=== PATIENT | female | born 1960 | race Caucasian/White ===

== ENCOUNTER 2016-04-01 11:05 | Emergency (ER) | payer BC, MEDICARE ==
--- NOTE | 2016-04-01 11:18 | ER Document Report ---
ED Medical Screen (RME) - General Stated Complaint: PSYCH EVAL Notes: 55 yo female with hx/o bipolar shchizophrenia. pt has stopped taking meds x several weeks. sister in law is afraid pt may harm herself. pt is having auditory hallucinations and suicidal thoughts. pt very sad, lack of motivation. Followed by Dr. Najera TRAVEL OUTSIDE OF THE [place] IN LAST 30 DAYS: No
[2016-04-01 11:38] LABS: ABSOLUTE LYMPHOCYTES (AUTO) 1.8 10^3/uL (0.5-4.7); ABSOLUTE MONOCYTES (AUTO) 0.3 10^3/uL (0.1-1.4); ABSOLUTE NEUT (AUTO) 4.7 10^3/uL (1.7-8.2); BASOPHILS % (AUTO) 0.7 % (0-2); EOSINOPHILS % (AUTO) 0.6 % (0-6); HEMATOCRIT 47.4 % (36.0-47.0); HEMOGLOBIN 15.8 g/dL (12.0-15.5); LYMPHOCYTES % (AUTO) 26.6 % (13-45); MEAN CORPUSCULAR HEMOGLOBIN 31.9 pg (27.0-33.4); MEAN CORPUSCULAR HGB CONC 33.4 g/dL (32.0-36.0); MEAN CORPUSCULAR VOLUME 96 fl (80-97); MONOCYTES % (AUTO) 4.6 % (3-13); RED BLOOD COUNT 4.96 10^6/uL (3.72-5.28); RED CELL DISTRIBUTION WIDTH 12.7 % (11.5-14.0); SEGMENTED NEUTROPHILS % (AUTO) 67.5 % (42-78); WHITE BLOOD COUNT 6.9 10^3/uL (4.0-10.5)
[2016-04-01 11:39] LABS: APPEARANCE,URINE SLIGHTLY-CLOUDY; BILIRUBIN,URINE NEGATIVE (NEGATIVE); GLUCOSE, URINE NEGATIVE (NEGATIVE); KETONES,URINE TRACE mg/dL (NEGATIVE); LEUKOCYTE ESTERASE,URINE TRACE (NEGATIVE); NITRITE,URINE NEGATIVE (NEGATIVE); PROTEIN,URINE NEGATIVE (NEGATIVE); URINE SPECIFIC GRAVITY 1.013; UROBILINOGEN,URINE NEGATIVE mg/dL (<2.0)
[2016-04-01 11:53] LABS: ALANINE AMINOTRANSFERASE 28 U/L (9-52); ALBUMIN 4.5 g/dL (3.5-5.0); ALKALINE PHOSPHATASE 83 U/L (38-126); ANION GAP 11 (5-19); ASPARTATE AMINO TRANSFERASE 18 U/L (14-36); BILIRUBIN,TOTAL 0.4 mg/dL (0.2-1.3); BLOOD UREA NITROGEN 11 mg/dL (7-20); CALCIUM 9.6 mg/dL (8.4-10.2); CARBON DIOXIDE 26 mmol/L (22-30); CHLORIDE 107 mmol/L (98-107); CREATININE RESULT 0.73 mg/dL (0.52-1.25); GLUCOSE 97 mg/dL (75-110); SODIUM 143.7 mmol/L (137-145); TOTAL PROTEIN 6.9 g/dL (6.3-8.2)
[2016-04-01 11:54] LABS: ALCOHOL < 10 mg/dL (NONE DETECTED); URINE BARBITURATES SCREEN NEGATIVE; URINE METHADONE SCREEN NEGATIVE; URINE OPIATES LOW NEGATIVE; URINE PHENCYCLIDINE SCREEN NEGATIVE
--- NOTE | 2016-04-01 12:06 | ER Document Report ---
ED General - General Chief Complaint: Suicidal Ideation Stated Complaint: PSYCH EVAL Time seen by provider: 12:01 Mode of Arrival: Ambulatory Information source: Patient Notes: 55-year-old female reports a many year history of hearing voices and carries a diagnosis of schizophrenia and bipolar disorder followed by david CHACON she reports she stopped taking her psychiatric medicines several weeks ago because she thought they were making her gain weight and she reports she's had worsening problems hearing voices and has thoughts of killing herself but denies any specific command hallucinations She reports she has not contacted her psychiatrist about this and has not seen him in about 2 months. Her companions report she plans to drive to [place] today for unspecified reasons they persuaded her to come here instead. Physical Exam: General: Alert, appears well. HEENT: Normocephalic. Atraumatic. PERRLA. Extraocular movements intact. Oropharynx clear. Neck: Supple. Non-tender. No JVD. Well healed incision consistent with thyroidectomy Respiratory: No respiratory distress. Clear and equal breath sounds bilaterally. Cardiovascular: Regular rate and rhythm. Abdominal: Normal Inspection. Soft, non-tender. No distension. Normal Bowel Sounds. Back: Non-tender. No deformity or step off. Extremities: Moves all four extremities. Upper extremities: Normal inspection. Non-tender. Normal color. Normal ROM. Normal temperature. Lower extremities: Normal inspection. Non-tender. No edema. Normal color. Normal ROM. Normal temperature. Neurological: Speech clear mentation normal hay farmer strength 5 out of 5 equal both upper tremors motor function 5 out of 5 equal both lower extremities Psychological: Normal affect. Normal Mood. Skin: Warm. Dry. Normal color. TRAVEL OUTSIDE OF THE [place] IN LAST 30 DAYS: No Past Medical History - Social History Smoking Status: Current Some Day Smoker Family History: None Past Surgical History: Reports: Hx Thyroid Surgery - Patient reports what sounds like subtotal thyroidectomy for a mass Review of Systems - Review of Systems Constitutional: denies: Chills, Fever EENT: denies: Ear pain, Throat pain Cardiovascular: denies: Chest pain, Dizziness Respiratory: denies: Cough, Short of breath Gastrointestinal: denies: Abdominal pain, Nausea, Vomiting Genitourinary: denies: Burning, Dysuria Female Genitourinary: No symptoms reported Musculoskeletal: denies: Back pain, Ankle swelling Skin: denies: Rash Hematologic/Lymphatic: denies: Swollen glands Neurological/Psychological: denies: Weakness, Numbness Physical Exam - Vital signs Vitals: Temp Pulse Resp BP Pulse Ox 97.2 F 114 H 18 132/96 H 93 04/01/16 11:15 04/01/16 11:15 04/01/16 11:15 04/01/16 11:15 04/01/16 11:15 Course - Re-evaluation Re-evalutation: 04/01/16 13:50 Case was discussed with mental health provider here. The patient I believe has good insight into her illness and most of her problems recently seem to be due simply to noncompliance. She has an appointment with david CHACON tomorrow and mental health providers did not recommend prescribe anything today. She will receive one dose of Vistaril here for anxiety - Vital Signs Vital signs: Temp Pulse Resp BP Pulse Ox 97.2 F 114 H 18 132/96 H 93 04/01/16 11:15 04/01/16 11:15 04/01/16 11:15 04/01/16 11:15 04/01/16 11:15 - Laboratory Result Diagrams: 04/01/16 11:25 04/01/16 11:25 Laboratory results interpreted by me: 04/01/16 04/01/16 04/01/16 11:25 11:25 11:25 Hgb 15.8 H Hct 47.4 H Urine Ketones TRACE H Urine Blood MODERATE H Ur Leukocyte Esterase TRACE H Salicylates < 1.0 L Acetaminophen < 10 L - EKG Interpretation by Me Additional EKG results interpreted by me: 04/01/16 12:46 EKG reviewed by myself sinus rhythm at 82 changes Discharge - Discharge Clinical Impression: Depression Qualifiers: Depression Type: unspecified Qualified Code(s): F32.9 - Major depressive disorder, single episode, unspecified Condition: Stable Disposition: HOME, SELF-CARE Additional Instructions: Depression Your evaluation reveals that you have mental depression. While symptoms may be vague, they often include disturbance of sleep, fatigue, loss of appetite , and general loss of interest in life. While depression may be a side effect of drugs, or a reaction to a major change in your life, many cases have no known cause. If depression is acute, and related to a major loss in your life, you can expect it to clear completely with time. If you have been depressed a long time , are prone to repeated bouts of depression or low mood, or have been thinking of suicide, get help. Depression can be treated with anti-depressant medication and counselling. Long-term depression will often take a few weeks to clear, even with appropriate medication. Follow-up care is important. Contact your physician, the hospital emergency center, crisis line, or your counsellor if you are losing control or having self-destructive thoughts. Keep your appointment tomorrow at [facility]. Referrals: SREE TOMAS MD [NO LOCAL MD] - Follow up tomorrow
[2016-04-01 12:53] LABS: THYROID STIMULATING HORMONE 3.35 uIU/mL (0.47-4.68)
[2016-04-01] MEDS ORDERED: HYDROXYZINE PAMOATE 25 MG CAPSULE PO ONE (13:30)
[2016-04-01] MEDS ORDERED: ACETAMINOPHEN 325 MG TABLET PO ONE (13:30)
--- NOTE | 2016-04-01 14:20 | PSYCHOLOGICAL NOTE ---
Psych Note - Psych Note Psych Note: Patient is a 55 year old female who presents via her [id number] (ROJELIO) with complaints of auditory hallucinations and paranoia. Patient states she has been treated for Bipolar Disorder and Schizophrenia for about 5-7 years, but no treatment priot to that onset. Patient states around 2 months ago she discontinued her psychiatric medications, prescribed by [facility], due to concerns she was gaining weight. Patient reports her symptoms have worsened in it was the incident last night that prompted her to ask herself ROJELIO for help. Patient states she was watching television last night and she felt as though the television was talking directly to her and trying to make her do something that was not right. Patient declined to specify. Patient states she hears voices and this often causes arguments between she and her and their daughter. Patient states she hears voices, mostly background chatter, but at times they are specific voices making specific statements. Patient provided the example of when she was walking into this ER room another patient walked past her and she states she heard her say, "you're is into porn." Patient reports when she has this flurry of auditory hallucinations she struggles to know what is real and what is not real. Patient denies wanting to harm herself. Patient denies any prior episodes of self-harm and/or suicide attempts. Patient denies visual hallucinations. Patient reports she recalls being prescribed Seroquel, Ativan, as well as other medications. Patient reports in addition to her mental illness, she has a thyroid condition but has also been noncompliant with her Levothyroxine. Patient reports right now her triggers and stressor are her and the house. Discussed with patient following up with her outpatient provider, whom she says she did not contacts [facility]. Patient's ROJELIO is bedside and states she was concerned for the patient's safety. She states last night the patient did talk about hurting herself, but also acknowledges she did not want to do so. ROJELIO states this morning the patient was going to drive to [place], and states, "she is in no shape to be driving." Discussed with ROJELIO following up with the outpatient provider. Patient is alert and oriented. Mood is anxious with congruent affect. Patient denies suicidal/homicidal ideations, intent, plan, means. Patient endorses auditory hallucinations. Patient additionally endorses paranoia. Thought processes were organized. Conversational speech was WNL for rate, tone, and prosody. Intellectual abilities were estimated within average range. Attention and focus were good. Insight was poor, judgment and impulse control were fair aeb reaching out to her ROJELIO for assistance. 298.9 (F29) unspecified schizophrenia Spectrum and other psychotic disorder, per history Patient is psychiatrically cleared for discharge and recommended to follow-up with her psychiatric provider. Patient did contact and schedule an appointment for tomorrow, April 02 at 1345 in the afternoon. Discussed with patient and ROJELIO discharging and following up, and encourage the family to discuss alternate options for this evening to insure everyone's comfort. ROJELIO redirected conversation to patient returning to her own home despite previously noted concerns. Patient did state she was willing to stay with her ROJELIO, but also agreed to return home. ROJELIO will accompany patient to her appointment tomorrow. Patient has no prior history of self injury or suicide attempts. Provided patient and ROJELIO with psychoeducation regarding her mental illness and the course of the disease. I consulted with Dr. Zamorano in regards to the care and management of this patient. RAIZA Fallon is in agreement with disposition and recommendations
[2016-04-01 14:50] VITALS: BP 128/92
--- NOTE | 2016-04-01 14:55 | EKG REPORT ---
SEVERITY:- NORMAL ECG - SINUS RHYTHM : Confirmed by: Dorothea Schwarz MD 01-Apr-2016 14:54:39
== END 2016-04-01 14:44 | disposition home or self-care (01) ==
LOC: ER 11:05
DX: F31.9 Bipolar disorder, unspecified (principal); F20.9 Schizophrenia, unspecified; Z91.14 Patient's other noncompliance with medication regimen; R45.851 Suicidal ideations; F17.200 Nicotine dependence, unspecified, uncomplicated
CPT/HCPCS: 93005; 99285; 36415; 84439; 80307 ×4; 84443; 85025; 80053; 81001; 93010; A9270 ×2

== ENCOUNTER 2016-12-14 12:00 | Emergency (ER) | payer MEDICARE ==
[2016-12-14 12:37] LABS: ABSOLUTE BASOPHILS # (AUTO) 0.1 10^3/uL (0.0-0.2); ABSOLUTE LYMPHOCYTES (AUTO) 2.3 10^3/uL (0.5-4.7); ABSOLUTE MONOCYTES (AUTO) 0.3 10^3/uL (0.1-1.4); ABSOLUTE NEUT (AUTO) 5.2 10^3/uL (1.7-8.2); EOSINOPHILS % (AUTO) 0.4 % (0-6); HEMATOCRIT 47.4 % (36.0-47.0); HEMOGLOBIN 16.4 g/dL (12.0-15.5); HGB HCT DIFFERENCE 1.8; MEAN CORPUSCULAR HEMOGLOBIN 32.9 pg (27.0-33.4); MEAN CORPUSCULAR HGB CONC 34.7 g/dL (32.0-36.0); MEAN CORPUSCULAR VOLUME 95 fl (80-97); MONOCYTES % (AUTO) 4.1 % (3-13); RED CELL DISTRIBUTION WIDTH 13.8 % (11.5-14.0); SEGMENTED NEUTROPHILS % (AUTO) 65.5 % (42-78); WHITE BLOOD COUNT 7.9 10^3/uL (4.0-10.5)
--- NOTE | 2016-12-14 12:40 | ER Document Report ---
ED Psych Disorder / Suicide - General Chief Complaint: Psych Problem Stated Complaint: PSYCH EVAL Time Seen by Provider: 12/14/16 12:21 Notes: Patient had thyroid surgery approximately 6 years ago. Subsequently she began to hear voices. Her state that she has been admitted to the hospital at least 3 times with no significant change of symptoms. Patient also refuses to take medications. Patient states she is convinced that they implanted something in her throat when they did the surgery. She states she hears voices constantly and they are getting worse. She states she is here today to see if something was implanted in her throat when the surgery was performed. TRAVEL OUTSIDE OF THE [place] IN LAST 30 DAYS: No - Related Data Allergies/Adverse Reactions: No Known Allergies Allergy (Verified 12/14/16 12:09) Home Medications: Current Home Medications Lorazepam [Ativan 0.5 mg Tablet] 0.5 mg PO Q4 PRN 12/14/16 [History] Past Medical History - Social History Smoking Status: Current Every Day Smoker Chew tobacco use (# tins/day): No Frequency of alcohol use: Occasional Drug Abuse: None Family History: None Patient has suicidal ideation: No Patient has homicidal ideation: No Renal/ Medical History: Denies: Hx Peritoneal Dialysis Psychiatric Medical History: Reports: Hx Bipolar Disorder, Hx Schizophrenia - Paranoid Past Surgical History: Reports: Hx Thyroid Surgery - Patient reports what sounds like subtotal thyroidectomy for a mass - Immunizations Hx Diphtheria, Pertussis, Tetanus Vaccination: No Physical Exam - Vital signs Vitals: Temp Pulse Resp BP Pulse Ox 98.1 F 92 20 139/74 H 96 12/14/16 12:01 12/14/16 12:01 12/14/16 12:01 12/14/16 12:01 12/14/16 12:01 Course - Vital Signs Vital signs: Temp Pulse Resp BP Pulse Ox 98.1 F 92 20 139/74 H 96 12/14/16 12:01 12/14/16 12:01 12/14/16 12:01 12/14/16 12:01 12/14/16 12:01 - Laboratory Result Diagrams: 12/14/16 12:19 12/14/16 12:19
[2016-12-14 12:49] LABS: APPEARANCE,URINE CLEAR; BILIRUBIN,URINE NEGATIVE (NEGATIVE); GLUCOSE, URINE NEGATIVE (NEGATIVE); KETONES,URINE NEGATIVE (NEGATIVE); LEUKOCYTE ESTERASE,URINE NEGATIVE (NEGATIVE); NITRITE,URINE NEGATIVE (NEGATIVE); PROTEIN,URINE NEGATIVE (NEGATIVE); URINE SPECIFIC GRAVITY 1.003; UROBILINOGEN,URINE NEGATIVE mg/dL (<2.0)
[2016-12-14 13:01] LABS: ALANINE AMINOTRANSFERASE 33 U/L (9-52); ALBUMIN 4.5 g/dL (3.5-5.0); ALCOHOL < 10 mg/dL (NONE DETECTED); ALKALINE PHOSPHATASE 85 U/L (38-126); ANION GAP 10 (5-19); ASPARTATE AMINO TRANSFERASE 20 U/L (14-36); BILIRUBIN,DIRECT 0.3 mg/dL (0.0-0.4); BILIRUBIN,TOTAL 0.4 mg/dL (0.2-1.3); BLOOD UREA NITROGEN 11 mg/dL (7-20); CALCIUM 9.8 mg/dL (8.4-10.2); CARBON DIOXIDE 24 mmol/L (22-30); CHLORIDE 108 mmol/L (98-107); CREATININE RESULT 0.63 mg/dL (0.52-1.25); GLUCOSE 99 mg/dL (75-110); POTASSIUM 3.9 mmol/L (3.6-5.0); SODIUM 142.2 mmol/L (137-145); TOTAL PROTEIN 7.1 g/dL (6.3-8.2)
[2016-12-14 13:05] LABS: URINE BARBITURATES SCREEN NEGATIVE; URINE METHADONE SCREEN NEGATIVE; URINE OPIATES LOW NEGATIVE; URINE PHENCYCLIDINE SCREEN NEGATIVE
--- NOTE | 2016-12-14 13:23 | EKG REPORT ---
SEVERITY:- BORDERLINE ECG - SINUS RHYTHM BORDERLINE T WAVE ABNORMALITIES : Confirmed by: Vasile Wright MD 14-Dec-2016 13:22:54
--- NOTE | 2016-12-14 14:18 | RADIOLOGY REPORT (SQ) ---
EXAM DESCRIPTION: SOFT TISSUE NECK COMPLETED DATE/TIME: 12/14/2016 2:04 pm REASON FOR STUDY: eval forign body COMPARISON: None. NUMBER OF VIEWS: Two views. TECHNIQUE: AP and lateral radiographic image of the soft tissues of the neck. LIMITATIONS: None. FINDINGS: EPIGLOTTIS: Normal. Contour normal. Aryepiglottic folds normal. PREVERTEBRAL SOFT TISSUES: Normal. No soft tissue swelling. SUBGLOTTIC AREA: Normal. No narrowing. RETROPHARYNGEAL SPACE: Normal. No soft tissue masses. BONES: Disc space loss of height with anterior osteophyte formation at C6-7. LUNG APICES: Normal. OTHER: There are multiple surgical clips post right lobe thyroidectomy. No left neck soft tissue cli ps. IMPRESSION: Post right lobe thyroidectomy. Degenerative disc changes with osteophyte formation at C6-7 TECHNICAL DOCUMENTATION: JOB ID: [id number] [email or web address]- All Rights Reserved
--- NOTE | 2016-12-14 14:43 | ER Document Report ---
ED General - General Chief Complaint: Psych Problem Stated Complaint: PSYCH EVAL Time Seen by Provider: 12/14/16 12:21 TRAVEL OUTSIDE OF THE [place] IN LAST 30 DAYS: No - HPI Patient complains to provider of: Concern for foreign body Notes: Patient coming in with a history of paranoid schizophrenia. Patient states her symptoms started whenever she had a half her thyroid removed. Patient states she is followed up with her doctor since that time states that her paranoid schizophrenia started after having her thyroid removed she is concerned that she has something retained in her neck. Patient states she does have voices however none these voices tell her to harm herself or harm anybody else. is at bedside confirms this. Patient states she does have a psychiatric provider locally Dr. Marsh. Patient states she is supposed to be on medications however the only medication she takes is Ativan. Patient states all the other medications cause her paranoid schizophrenia to worsen. Patient states she has a follow-up appointment see [facility] executive later this week. Initial provider's felt patient would need a psychiatric evaluation however upon talk to the patient she is more concerned that something is implanted in her neck. Patient is requesting an x-ray for further evaluation. Denies any other symptoms. - Related Data Allergies/Adverse Reactions: No Known Allergies Allergy (Verified 12/14/16 12:09) Home Medications: Current Home Medications Lorazepam [Ativan 0.5 mg Tablet] 0.5 mg PO Q4 PRN 12/14/16 [History] Past Medical History - Social History Smoking Status: Current Every Day Smoker Chew tobacco use (# tins/day): No Frequency of alcohol use: Occasional Drug Abuse: None Family History: None Patient has suicidal ideation: No Patient has homicidal ideation: No Renal/ Medical History: Denies: Hx Peritoneal Dialysis Psychiatric Medical History: Reports: Hx Bipolar Disorder, Hx Schizophrenia - Paranoid Past Surgical History: Reports: Hx Thyroid Surgery - Patient reports what sounds like subtotal thyroidectomy for a mass - Immunizations Hx Diphtheria, Pertussis, Tetanus Vaccination: No Review of Systems - Review of Systems Constitutional: No symptoms reported EENT: Other - Concern for throat foreign body Cardiovascular: No symptoms reported Respiratory: No symptoms reported Gastrointestinal: No symptoms reported Genitourinary: No symptoms reported Female Genitourinary: No symptoms reported Musculoskeletal: No symptoms reported Skin: No symptoms reported Hematologic/Lymphatic: No symptoms reported Neurological/Psychological: No symptoms reported Physical Exam - Vital signs Vitals: Temp Pulse Resp BP Pulse Ox 98.1 F 92 20 139/74 H 96 12/14/16 12:01 12/14/16 12:01 12/14/16 12:01 12/14/16 12:01 12/14/16 12:01 Interpretation: Normal - General General appearance: Appears well, Alert - HEENT Head: Normocephalic, Atraumatic Eyes: Normal Pupils: PERRL - Respiratory Respiratory status: No respiratory distress Chest status: Nontender Breath sounds: Normal Chest palpation: Normal - Cardiovascular Rhythm: Regular Heart sounds: Normal auscultation Murmur: No - Abdominal Inspection: Normal Distension: No distension Bowel sounds: Normal Tenderness: Nontender Organomegaly: No organomegaly - Back Back: Normal, Nontender - Extremities General upper extremity: Normal inspection, Nontender, Normal color, Normal ROM , Normal temperature General lower extremity: Normal inspection, Nontender, Normal color, Normal ROM , Normal temperature, Normal weight bearing. No: Zacarias's sign - Neurological Neuro grossly intact: Yes Cognition: Normal Orientation: AAOx4 Adrian Coma Scale Eye Opening: Spontaneous Adrian Coma Scale Verbal: Oriented Adrian Coma Scale Motor: Obeys Commands Adrian Coma Scale Total: 15 Speech: Normal Motor strength normal: LUE, RUE, LLE, RLE Sensory: Normal - Psychological Associated symptoms: Normal affect, Normal mood - Skin Skin Temperature: Warm Skin Moisture: Dry Skin Color: Normal Course - Re-evaluation Re-evalutation: 12/14/16 15:45 Patient had a soft tissue neck showing postsurgical signs surgical clips and some arthritis in her neck. Copies of the x-ray pictures were given to the patient is set at bedside explained the surgical clips to the patient. Patient otherwise was happy with her care here will follow up with her outpatient providers. No need for any psychiatric evaluation as states patient otherwise baseline - Vital Signs Vital signs: Temp Pulse Resp BP Pulse Ox 98.0 F 90 20 135/70 H 100 12/14/16 14:46 12/14/16 14:46 12/14/16 14:46 12/14/16 14:46 12/14/16 14:46 - Laboratory Result Diagrams: 12/14/16 12:19 12/14/16 12:19 Laboratory results interpreted by me: 1012/14/16 12/14/16 12:19 12:19 12:19 Hgb 16.4 H Hct 47.4 H Chloride 108 H Urine Blood SMALL H Salicylates < 1.0 L Acetaminophen < 10 L Discharge - Discharge Clinical Impression: Paranoid schizophrenia, No problem, feared complaint unfounded Condition: Good Disposition: HOME, SELF-CARE Additional Instructions: Your x-ray today does not show any signs of foreign body you have the appropriate post surgical changes or surgical clips seen on your x-ray however recommend she follow-up with your psychiatric provider and/or primary care physician. Return to the ER if symptoms worsen.
[2016-12-14 14:47] VITALS: BP 135/70
== END 2016-12-14 14:47 | disposition home or self-care (01) ==
LOC: ER 12:00
DX: Z03.89 Encounter for observation for other suspected diseases and conditions ruled out (principal); F20.0 Paranoid schizophrenia; E89.0 Postprocedural hypothyroidism; F17.200 Nicotine dependence, unspecified, uncomplicated; M47.9 Spondylosis, unspecified; Z79.899 Other long term (current) drug therapy
CPT/HCPCS: 36415; 70360; 80053; 80307; 81001; 85025; 93005; 93010; 99284

== ENCOUNTER 2016-12-16 07:14 | Emergency (ER) | payer MEDICARE ==
--- NOTE | 2016-12-16 08:09 | ER Document Report ---
ED Psych Disorder / Suicide - General Mode of Arrival: Ambulatory Information source: Patient TRAVEL OUTSIDE OF THE U.S. IN LAST 30 DAYS: No <RAFAL WELSH - Last Filed: 12/16/16 10:16> <JANETTE HOLGUIN - Last Filed: 12/16/16 14:42> <PRADEEP GRANT - Last Filed: 12/17/16 15:31> <DILMA RUBIO - Last Filed: 12/17/16 16:40> - General Chief Complaint: Psych Problem Stated Complaint: PSYCH EVALUATION Time Seen by Provider: 12/16/16 07:33 Notes: Patient is a 56-year-old female who presents to the emergency department today appearing to be manic and a paranoid schizophrenic which goes along with her documented past medical history. Patient had a partial thyroidectomy in 2005 and reportedly has had these symptoms since that operation. When asked why she has come in today she says "you all know what the hell brings me here". Patient has not taken her levothyroxine for quite some time because she states it makes her "voices" very nasty. Patient was seen here two days ago and she had an xray done of her neck which showed clips from prior thyroid surgery. Patient references these clips today saying that the only clips she knows of are clips that hold bullets for a gun and that "every doctor knows that you cauterize bleeding vessels, not clips". Patient talks in third person about herself and "William" who is the alternate voice that "comes out of her throat". ( RAFAL WELSH) - HPI Notes: 12/16/2016: Patient disclosed concern about hearing voices and "someone else speaking out of Jahaira's throat. "Patient continued disclosed that she would like whenever it is cut out of her throat. Patient is noted to be talking in third person "Jahaira does not like this and needs to stop." Patient's adult daughter and are at bedside at patient's request. They disclosed the patient has been exhibiting difficulties with hallucinations since 2005. In 2005 patient had surgery to remove her thyroid. Both patient and family confirmed patient had no prior mental health concerns before surgery. Patient denies depression or anxiety. Patient disclosed that someone else talks from her throat and gets into arguments with other family members and she cannot live like this anymore. Patient continued disclosed that there is a hearing device in her ear that makes her here things. Patient is alert and orientated to person, place, time. Mood is irritable with congruent affect. Patient denies suicidal and homicidal ideation. Patient endorses auditory hallucinations. Delusions of being controlled are noted i.e the patient identifying clips in her throat from surgery causing other voices to come out of her and for a listening device that has been implanted in her ear to hear things. Eye contact is intense. Conversational speech is odd where patient is talking in third person. Intellectual abilities appear to be within average range. Attention and concentration are good. Insight, judgment , impulse control are impaired. Unspecified psychosis Impression\\plan: Patient is recommended for IVC. Patient is demonstrating acute psychosis with delusions of being controlled. Patient is a danger to self. Patient will be reevaluated. Dr. Zamorano was consulted and the care management of this patient; attending physician is in agreement with recommendations and disposition. 12/17/2016: Clinician conducted checking with patient. Patient is noted to be sitting on the bed however with psychomotor agitation and shaking her legs. Patient continues to have good eye contact however still discloses concerns about the clips in her throat and listening devices in her ears. Patient's is at bedside. Patient's states that has been very difficult but patient has strong support system. Unspecified psychosis [place]\\plan: Patient is recommended to continue under IVC. [facility] is [facility]; transportation will occur today. (PRADEEP GRANT) - Related Data Allergies/Adverse Reactions: No Known Allergies Allergy (Verified 12/14/16 12:09) Home Medications: Current Home Medications No Home Medications 12/17/16 [History] Past Medical History - General Information source: Patient - Social History Smoking Status: Current Every Day Smoker Cigarette use (# per day): Yes Chew tobacco use (# tins/day): No Frequency of alcohol use: None Drug Abuse: None Lives with: Family Family History: None - Medical History Medical History: Negative Psychiatric Medical History: Reports: Hx Bipolar Disorder, Hx Schizophrenia - Paranoid Past Surgical History: Reports: Hx Thyroid Surgery - Patient reports what sounds like subtotal thyroidectomy for a mass - Immunizations Hx Diphtheria, Pertussis, Tetanus Vaccination: No <RAFAL WELSH - Last Filed: 12/16/16 10:16> Review of Systems - Review of Systems -: Yes ROS unobtainable due to patient's medical condition - hallucinations, manic Neurological/Psychological: See HPI, Hallucinations <RAFAL WELSH - Last Filed: 12/16/16 10:16> Physical Exam <RAFAL WELSH - Last Filed: 12/16/16 10:16> <JANETTE HOLGUIN - Last Filed: 12/16/16 14:42> <PRADEEP GRANT - Last Filed: 12/17/16 15:31> <DILMA RUBIO - Last Filed: 12/17/16 16:40> - Vital signs Vitals: Temp Pulse Resp BP Pulse Ox 97.9 F 96 18 132/95 H 97 12/16/16 07:22 12/16/16 07:22 12/16/16 07:22 12/16/16 07:22 12/16/16 07:22 - Notes Notes: Physical Exam: General: Alert, appears well. HEENT: Normocephalic. Atraumatic. PERRLA. Extraocular movements intact. Oropharynx clear. Anterior neck scar consistent with surgical history. Neck: Supple. Respiratory: No respiratory distress. Abdominal: Normal Inspection. No distension. Extremities: Moves all four extremities. Neurological: Normal cognition. AAOx4. Normal speech. Psychological: Appears manic. Auditory hallucinations. Pressured and tangential speech. Skin: Warm. Dry. Normal color. (RAFAL WELSH) Course - Laboratory Result Diagrams: 12/16/16 08:47 12/16/16 08:47 <RAFAL WELSH - Last Filed: 12/16/16 10:16> - Laboratory Result Diagrams: 12/16/16 08:47 12/16/16 08:47 - EKG Interpretation by Wy EKG shows normal: Sinus rhythm, [place], Intervals, QRS Complexes, ST-T Waves Rate: Normal - 83 Rhythm: NSR <JANETTE HOLGUIN - Last Filed: 12/16/16 14:42> - Laboratory Result Diagrams: 12/16/16 08:47 12/16/16 08:47 <PRADEEP GRANT - Last Filed: 12/17/16 15:31> - Laboratory Result Diagrams: 12/16/16 08:47 12/16/16 08:47 <DILMA RUBIO - Last Filed: 12/17/16 16:40> - Re-evaluation Re-evalutation: 12/16/16 11:55 The patient claims to be hypothyroid, also claims that she does not take her medications because of side effects she had heard about. Her TSH, T3 and T4 are all entirely normal. (JANETTE HOLGUIN) - Vital Signs Vital signs: Temp Pulse Resp BP Pulse Ox 98.1 F 64 14 120/61 98 12/17/16 06:23 12/17/16 14:00 12/17/16 14:00 12/17/16 14:00 12/17/16 14:00 - Laboratory Laboratory results interpreted by me: 12/16/16 12/16/16 12/16/16 08:47 08:47 09:50 Hgb 17.3 H Hct 49.9 H Sodium 145.6 H Chloride 108 H Urine Blood MODERATE H Urine Urobilinogen 2.0 H Acetaminophen < 10 L Discharge <RAFAL WELSH - Last Filed: 12/16/16 10:16> <JANETTE HOLGUIN - Last Filed: 12/16/16 14:42> <PRADEEP GRANT - Last Filed: 12/17/16 15:31> <DILMA RUBIO - Last Filed: 12/17/16 16:40> - Discharge Clinical Impression: Manic psychosis, Hallucinations Condition: Stable Disposition: PSYCH HOSP/UNIT Scribe Attestation: 12/16/16 14:43 I personally performed the services described in the documentation, reviewed and edited the documentation which was dictated to the scribe in my presence, and it accurately records my words and actions. (JANETTE HOLGUIN) Scribe Documentation - Scribe Written by Scribe:: Arun Goodman, 12/16/2016 1037 acting as scribe for :: José <RAFAL WELSH - Last Filed: 12/16/16 10:16>
[2016-12-16 09:01] LABS: ABSOLUTE LYMPHOCYTES (AUTO) 1.8 10^3/uL (0.5-4.7); ABSOLUTE MONOCYTES (AUTO) 0.4 10^3/uL (0.1-1.4); ABSOLUTE NEUT (AUTO) 5.6 10^3/uL (1.7-8.2); BASOPHILS % (AUTO) 0.6 % (0-2); EOSINOPHILS % (AUTO) 0.5 % (0-6); HEMATOCRIT 49.9 % (36.0-47.0); HEMOGLOBIN 17.3 g/dL (12.0-15.5); LYMPHOCYTES % (AUTO) 22.2 % (13-45); MEAN CORPUSCULAR HGB CONC 34.7 g/dL (32.0-36.0); MEAN CORPUSCULAR VOLUME 95 fl (80-97); MONOCYTES % (AUTO) 5.4 % (3-13); RED BLOOD COUNT 5.25 10^6/uL (3.72-5.28); RED CELL DISTRIBUTION WIDTH 13.6 % (11.5-14.0); SEGMENTED NEUTROPHILS % (AUTO) 71.3 % (42-78); WHITE BLOOD COUNT 7.9 10^3/uL (4.0-10.5)
[2016-12-16] MEDS ORDERED: BENZTROPINE MESYLATE 1 MG TABLET PO ONE (09:21)
[2016-12-16] MEDS ORDERED: HALOPERIDOL 5 MG TABLET PO ONE (09:21)
[2016-12-16] MEDS ORDERED: BENZTROPINE MESYLATE INJ 2 MG/2 ML AMPULE IM ONE (09:30)
[2016-12-16] MEDS ORDERED: HALOPERIDOL LACTATE INJ 5 MG/1 ML VIAL IM ONE ×2 (09:30→09:31)
[2016-12-16 09:31] LABS: ALANINE AMINOTRANSFERASE 25 U/L (9-52); ALBUMIN 4.7 g/dL (3.5-5.0); ALKALINE PHOSPHATASE 88 U/L (38-126); ANION GAP 14 (5-19); ASPARTATE AMINO TRANSFERASE 20 U/L (14-36); BILIRUBIN,DIRECT 0.3 mg/dL (0.0-0.4); BILIRUBIN,TOTAL 0.5 mg/dL (0.2-1.3); BLOOD UREA NITROGEN 16 mg/dL (7-20); CALCIUM 9.7 mg/dL (8.4-10.2); CARBON DIOXIDE 24 mmol/L (22-30); CHLORIDE 108 mmol/L (98-107); CREATININE RESULT 0.71 mg/dL (0.52-1.25); GLUCOSE 107 mg/dL (75-110); POTASSIUM 3.9 mmol/L (3.6-5.0); SODIUM 145.6 mmol/L (137-145); TOTAL PROTEIN 7.8 g/dL (6.3-8.2)
[2016-12-16] MEDS ORDERED: HALOPERIDOL LACTATE INJ 5 MG/1 ML VIAL ONE (09:31)
[2016-12-16] MEDS ORDERED: BENZTROPINE MESYLATE INJ 2 MG/2 ML AMPULE IM PRN (09:31)
[2016-12-16 09:32] LABS: ALCOHOL < 10 mg/dL (NONE DETECTED)
[2016-12-16 09:47] LABS: FREE T3 3.77 pg/mL (2.77-5.27)
[2016-12-16 10:41] LABS: THYROID STIMULATING HORMONE 2.22 uIU/mL (0.47-4.68)
[2016-12-16 10:58] LABS: APPEARANCE,URINE SLIGHTLY-CLOUDY; BILIRUBIN,URINE NEGATIVE (NEGATIVE); CALCIUM OXALATE CRYSTALS,URINE MODERATE /HPF; GLUCOSE, URINE NEGATIVE (NEGATIVE); KETONES,URINE NEGATIVE (NEGATIVE); LEUKOCYTE ESTERASE,URINE NEGATIVE (NEGATIVE); NITRITE,URINE NEGATIVE (NEGATIVE); PROTEIN,URINE NEGATIVE (NEGATIVE)
[2016-12-16] MEDS ORDERED: NICOTINE 21 MG/24 HR PATCH.TD24 TD ONE (11:01)
[2016-12-16 11:33] LABS: URINE BARBITURATES SCREEN NEGATIVE; URINE METHADONE SCREEN NEGATIVE; URINE OPIATES LOW NEGATIVE; URINE PHENCYCLIDINE SCREEN NEGATIVE
--- NOTE | 2016-12-16 12:18 | EKG REPORT ---
SEVERITY:- ABNORMAL ECG - SINUS RHYTHM NONSPECIFIC ST-T CHANGES- INFERIOR LEADS POOR R PROGRESSION ANTERIOR PRECORDIAL LEADS. : Confirmed by: Vasile Wright MD 16-Dec-2016 12:17:22
[2016-12-16] MEDS ORDERED: DIPHENHYDRAMINE HCL 25 MG CAPSULE PO SCH (18:30)
--- NOTE | 2016-12-17 09:12 | ER Document Report ---
Doctor's Note Notes: This is a 56-year-old female with a psychiatric history who presented to the emergency room paranoid and manic. Patient's vital signs and labs have been stable. She is currently awaiting psychiatric evaluation. 12/17/16 09:11 12/17/16 16:37 The patient was evaluated by the psychiatry team and they have recommended transfer for inpatient psychiatric care at [place]. I have spoken to the patient and she is disappointed and upset about inpatient transfer but this is what psychiatry feels is best.
[2016-12-17 15:11] VITALS: BP 120/61
== END 2016-12-17 16:46 ==
LOC: ER 07:14
DX: F30.2 Manic episode, severe with psychotic symptoms (principal); F17.210 Nicotine dependence, cigarettes, uncomplicated
CPT/HCPCS: 93005; 99285; 96372; 36415; 84439; 80307 ×3; 84443; 85025; 80053; 81001; 84481; 93010; J0515; A9270; J1630

== ENCOUNTER 2017-11-16 21:07 | Emergency (ER) | payer MEDICARE ==
[2017-11-16 22:29] LABS: ABSOLUTE LYMPHOCYTES (AUTO) 3.6 10^3/uL (0.5-4.7); ABSOLUTE MONOCYTES (AUTO) 0.3 10^3/uL (0.1-1.4); ABSOLUTE NEUT (AUTO) 2.4 10^3/uL (1.7-8.2); BASOPHILS % (AUTO) 0.6 % (0-2); EOSINOPHILS % (AUTO) 0.6 % (0-6); HEMATOCRIT 43.1 % (36.0-47.0); HEMOGLOBIN 14.9 g/dL (12.0-15.5); LYMPHOCYTES % (AUTO) 56.8 % (13-45); MEAN CORPUSCULAR HEMOGLOBIN 33.4 pg (27.0-33.4); MEAN CORPUSCULAR HGB CONC 34.5 g/dL (32.0-36.0); MEAN CORPUSCULAR VOLUME 97 fl (80-97); MONOCYTES % (AUTO) 4.9 % (3-13); PLATELET COUNT 272 10^3/uL (150-450); RED BLOOD COUNT 4.46 10^6/uL (3.72-5.28); RED CELL DISTRIBUTION WIDTH 13.6 % (11.5-14.0); SEGMENTED NEUTROPHILS % (AUTO) 37.1 % (42-78); TOTAL CELLS COUNTED % (AUTO) 100 %; WHITE BLOOD COUNT 6.4 10^3/uL (4.0-10.5)
[2017-11-16] MEDS ORDERED: FENTANYL CITRATE INJ/PF 100 MCG/2 ML AMPUL IV ONE (23:26)
[2017-11-16] MEDS ORDERED: NORMAL SALINE 500 ML IV ONE (23:42)
--- NOTE | 2017-11-17 00:09 | ER Document Report ---
ED Psych Disorder / Suicide - General Chief Complaint: Possible Overdose Stated Complaint: POSSIBLE OVERDOSE Time Seen by Provider: 11/16/17 21:41 TRAVEL OUTSIDE OF THE U.S. IN LAST 30 DAYS: No - Related Data Allergies/Adverse Reactions: No Known Allergies Allergy (Verified 12/14/16 12:09) Past Medical History - Social History Smoking Status: Never Smoker Frequency of alcohol use: Heavy Family History: None Patient has suicidal ideation: Yes Patient has homicidal ideation: No Renal/ Medical History: Denies: Hx Peritoneal Dialysis Psychiatric Medical History: Reports: Hx Bipolar Disorder, Hx Schizophrenia - Paranoid Past Surgical History: Reports: Hx Thyroid Surgery - Patient reports what sounds like subtotal thyroidectomy for a mass - Immunizations Hx Diphtheria, Pertussis, Tetanus Vaccination: No Physical Exam - Vital signs Vitals: BP Pulse Ox 135/79 H 95 11/16/17 21:10 11/16/17 21:10 Course - Vital Signs Vital signs: Temp Pulse Resp BP Pulse Ox 17 122/75 92 11/16/17 23:01 11/16/17 23:00 11/16/17 23:01 - Laboratory Result Diagrams: 11/16/17 20:41 11/16/17 20:41 Laboratory results interpreted by me: 11/16/17 20:41 Seg Neutrophils % 37.1 L Lymphocytes % 56.8 H
--- NOTE | 2017-11-17 00:17 | ER Document Report ---
ED Psych Disorder / Suicide - General Mode of Arrival: Ambulatory Information source: Patient TRAVEL OUTSIDE OF THE [place] IN LAST 30 DAYS: No <RAFAL WELSH - Last Filed: 11/17/17 00:13> <JESICA PANDEY - Last Filed: 11/17/17 02:51> - General Chief Complaint: Possible Overdose Stated Complaint: POSSIBLE OVERDOSE Time Seen by Provider: 11/16/17 21:41 Notes: 57 year old female that presents today after taking "7 seroquel" in an overdose attempt. Patient has documented history of being a paranoid schizophrenic with episodes of jason. Patient has had this exact presentation in the past. Patient mentions that "clips" were installed during a partial thyroidectomy and they play voices of her son and sister. Patient requesting to see a healthcare consulting manager for malpractice lawsuit. Patient admits to heavy EtOH abuse tonight. Patient states she has no guns at home. (RAFAL WELSH) - Related Data Allergies/Adverse Reactions: No Known Allergies Allergy (Verified 12/14/16 12:09) Past Medical History - General Information source: Patient - Social History Smoking Status: Never Smoker Cigarette use (# per day): No Frequency of alcohol use: Heavy Lives with: Family Family History: None Patient has suicidal ideation: Yes Patient has homicidal ideation: No Psychiatric Medical History: Reports: Hx Bipolar Disorder, Hx Schizophrenia - Paranoid Past Surgical History: Reports: Hx Thyroid Surgery - Patient reports what sounds like subtotal thyroidectomy for a mass - Immunizations Hx Diphtheria, Pertussis, Tetanus Vaccination: No <RAFAL WELSH - Last Filed: 11/17/17 00:13> Review of Systems - Review of Systems -: Yes ROS unobtainable due to patient's medical condition - acute psychosis <RAFAL WELSH - Last Filed: 11/17/17 00:13> Physical Exam - Vital signs Interpretation: Tachycardic - General General appearance: Appears well, Alert - HEENT Head: Normocephalic, Atraumatic Eyes: Normal Pupils: PERRL Mucous membranes: Dry - Respiratory Respiratory status: No respiratory distress Chest status: Nontender Breath sounds: Normal Chest palpation: Normal - Cardiovascular Rhythm: Regular Heart sounds: Normal auscultation Murmur: No - Abdominal Inspection: Normal Distension: No distension Bowel sounds: Normal Tenderness: Nontender Organomegaly: No organomegaly - Back Back: Normal, Nontender - Extremities General upper extremity: Normal inspection, Nontender, Normal color, Normal ROM , Normal temperature General lower extremity: Normal inspection, Nontender, Normal color, Normal ROM , Normal temperature, Normal weight bearing. No: Zacarias's sign - Neurological Neuro grossly intact: Yes Cognition: Normal Adrian Coma Scale Eye Opening: Spontaneous Adrian Coma Scale Verbal: Confused Adrian Coma Scale Motor: Obeys Commands Covert Coma Scale Total: 14 Speech: Normal Motor strength normal: LUE, RUE, LLE, RLE - Psychological Associated symptoms: Auditory hallucinations, Psychomotor agitation, Tearful - Skin Skin Temperature: Warm Skin Moisture: Dry Skin Color: Normal <JESICA PANDEY - Last Filed: 11/17/17 02:51> - Vital signs Vitals: BP Pulse Ox 135/79 H 95 11/16/17 21:10 11/16/17 21:10 Course - Laboratory Result Diagrams: 11/16/17 20:41 11/16/17 20:41 <RAFAL WELSH - Last Filed: 11/17/17 00:13> - Laboratory Result Diagrams: 11/16/17 20:41 11/16/17 23:59 <JESICA PANDEY - Last Filed: 11/17/17 02:51> - Re-evaluation Re-evalutation: 11/17/17 02:50 Patient is a 57-year-old female with an apparent diagnosis of schizophrenia who comes in saying that she is hearing voices. Patient states that she took 7 Seroquel tonight. She states that she was suicidal at the time and she still might be because of the voices. Patient does seem to be responding to stimuli that I am not hearing. Medically she is stable, should be held for mental health evaluation. Concern for acute psychosis. (JESICA PANDEY) - Vital Signs Vital signs: Temp Pulse Resp BP Pulse Ox 17 122/75 92 11/16/17 23:01 11/16/17 23:00 11/16/17 23:01 - Laboratory Laboratory results interpreted by me: 11/16/17 11/16/17 11/17/17 20:41 23:59 01:04 Seg Neutrophils % 37.1 L Lymphocytes % 56.8 H Chloride 111 H Urine Ketones TRACE H Salicylates < 1.0 L Acetaminophen < 10 L Discharge <RAFAL WELSH - Last Filed: 11/17/17 00:13> <JESICA PANDEY - Last Filed: 11/17/17 02:51> - Discharge Clinical Impression: Acute psychosis Condition: Stable Disposition: OTHER Scribe Attestation: 11/17/17 02:51 I personally performed the services described in the documentation, reviewed and edited the documentation which was dictated to the scribe in my presence, and it accurately records my words and actions. (JESICA PANDEY) Scribe Documentation - Scribe Written by Omegae:: Arun Goodman, 11/17/2017 0016 acting as scribe for :: Martha <RAFAL WELSH - Last Filed: 11/17/17 00:13>
[2017-11-17 00:37] LABS: ALANINE AMINOTRANSFERASE 25 U/L (9-52); ALBUMIN 3.6 g/dL (3.5-5.0); ALKALINE PHOSPHATASE 58 U/L (38-126); ANION GAP 7 (5-19); ASPARTATE AMINO TRANSFERASE 21 U/L (14-36); BILIRUBIN,DIRECT 0.2 mg/dL (0.0-0.4); BILIRUBIN,TOTAL 0.3 mg/dL (0.2-1.3); BLOOD UREA NITROGEN 18 mg/dL (7-20); CALCIUM 8.6 mg/dL (8.4-10.2); CARBON DIOXIDE 24 mmol/L (22-30); CHLORIDE 111 mmol/L (98-107); GLUCOSE 94 mg/dL (75-110); POTASSIUM 3.9 mmol/L (3.6-5.0); SODIUM 141.7 mmol/L (137-145); TOTAL PROTEIN 6.4 g/dL (6.3-8.2)
[2017-11-17 00:40] LABS: ACETAMINOPHEN < 10 ug/mL (10-30); ALCOHOL < 10 mg/dL (NONE DETECTED); SALICYLATE < 1.0 mg/dL (2.0-20.0)
[2017-11-17 01:19] LABS: APPEARANCE,URINE SLIGHTLY-CLOUDY; BILIRUBIN,URINE NEGATIVE (NEGATIVE); COLOR,URINE YELLOW; GLUCOSE, URINE NEGATIVE (NEGATIVE); KETONES,URINE TRACE mg/dL (NEGATIVE); LEUKOCYTE ESTERASE,URINE NEGATIVE (NEGATIVE); NITRITE,URINE NEGATIVE (NEGATIVE); PROTEIN,URINE NEGATIVE (NEGATIVE); UROBILINOGEN,URINE NEGATIVE mg/dL (<2.0)
[2017-11-17 01:47] LABS: URINE AMPHETAMINES SCREEN NEGATIVE; URINE BARBITURATES SCREEN NEGATIVE; URINE BENZODIAZEPINES SCREEN NEGATIVE; URINE COCAINE SCREEN NEGATIVE; URINE MARIJUANA (THC) SCREEN NEGATIVE; URINE METHADONE SCREEN NEGATIVE; URINE PHENCYCLIDINE SCREEN NEGATIVE
--- NOTE | 2017-11-17 08:24 | EKG REPORT ---
SEVERITY:- BORDERLINE ECG - SINUS TACHYCARDIA BORDERLINE T ABNORMALITIES, ANT-LAT LEADS : Confirmed by: Carlie Brizuela 17-Nov-2017 08:23:57
--- NOTE | 2017-11-17 10:58 | ER Document Report ---
Doctor's Note Notes: 11/17/17 10:45 Rounds: Patient says that she is hearing voices talking with this patient, she says that she has a history of bipolar disorder as well as schizophrenia. She denies current medications. Has been a patient in the past at [facility], Dr. Marsh, but not currently seeing him. Not currently taking any psychotic medications. Patient says she was having suicidal thoughts because of hearing voices. She took 7 Seroquel. Patient says that she has been hearing voices coming from the metal clips that were put in her neck when she had her thyroid removed in 2005. She says the voices have been present ever since, but have recently become "nonstop". Labs are all essentially normal. Vital signs were also all essentially normal. Patient is obviously in some psychotic state, does not think she should take any medications. Says that she drinks alcohol heavily and did so yesterday even though her EtOH level was negative here. I think the patient needs to be started on some antipsychotic medications and I am going to start her on Thorazine 50 mg 3 times a day along with Cogentin 1 mg daily. She is going to need to stay for at least an overnight to see how she is in 24 hours with the medications on board. Estela Raymond MD
[2017-11-17] MEDS: CHLORPROMAZINE HCL 50 MG TABLET PO SCH ×3 (11:13→17:34)
[2017-11-17] MEDS: BENZTROPINE MESYLATE 1 MG TABLET PO SCH (11:13)
--- NOTE | 2017-11-17 14:03 | PSYCHOLOGICAL NOTE ---
Psych Note - Psych Note Psych Note: Reason for Consult: psychosis Patient reports that she hears voices all the time "nonstop" of her sister and brother (patient's son lives in [place] and her sister lives in [place]) . She states they are coming from implants in her throat when she had surgery in 2005. She discloses that even when she closes her lips they can hear her thoughts and comment on them. She reports "if is this might conscience her concentration this is not right." Patient reports that she took 7 Seroquel and attempt to get some sleep and stop the voices. She discloses that she knows there is a microphone in her throat because she can feel it vibrate and feel it when they talk. She reports that she is a patient of [facility]. She discloses that "they are trying to to use me to take over." She continued to state that she is never consented to the implants and wants to have surgery to remove them. Patient then started to talk about the president of the [employer] but was unable to follow the thought pattern. Patient is alert and orientated to person, place, time and circumstance. Mood is dysphoric with tearful affect. Patient denies suicidal and homicidal ideations. Delusions of control are noted. Thought processes are slightly disorganized and irrational. Thought content is very focused on her delusions. Eye contact is fair. Conversational speech was within normal rate, tone and prosody. Intellectual abilities appear to be within the average range. Attention and concentration are poor. Insight, judgment, impulse control are poor. Medication recommendation per [facility]'s contracted psychiatrist Dr. Antonia SINGH are as Follows Thorazine 50mg every 8 hours Cogentin 1mg daily 298.9 (F29) unspecified psychosis Impression/plan: Patient is recommended for IVC. Patient is currently in acute psychosis. She reports command auditory hallucinations in addition to visual. Patient believes she has a microphone imbedded in her throat from when she had surgery. Patient states there are voices coming from that microphone that are of her sister and son. Patient's insight is impaired and she is currently a danger to herself.
[2017-11-18] MEDS: BENZTROPINE MESYLATE 1 MG TABLET PO SCH (09:26)
[2017-11-18] MEDS: CHLORPROMAZINE HCL 50 MG TABLET PO SCH ×3 (09:26→17:58)
--- NOTE | 2017-11-18 10:43 | PSYCHOLOGICAL NOTE ---
Psych Note - Psych Note Psych Note: Reason for Consult: psychosis Check-in conducted with patient Patient continues to disclose delusions and wanting to have elective surgery to take out the microphone in her throat. Mood is slightly irritable with congruent affect. Patient is demonstrating some delusions of paranoia in addition of being under control. Patient reports the voices can hear her thoughts. Medication recommendation per [facility]'s contracted psychiatrist Dr. Antonia SINGH are as Follows Thorazine 50mg every 8 hours Cogentin 1mg daily 298.9 (F29) unspecified psychosis Impression/plan: Patient is recommended to continue under IVC. Patient is currently in acute psychosis. She reports command auditory hallucinations in addition to visual. Patient believes she has a microphone imbedded in her throat from when she had surgery. Patient states there are voices coming from that microphone that are of her sister and son. Patient's insight is impaired and she is currently a danger to herself.
--- NOTE | 2017-11-18 13:46 | ER Document Report ---
Doctor's Note Notes: 11/18/17 13:45 57-year-old female who is currently on IVC as a result of psychosis, this woman continues to demonstrate symptoms suggestive of psychosis with hallucinations being apparent. As such we will plan for continued IVC, she currently has no medical complaints , has previously been medically cleared. Current plan is for this patient to undergo continued evaluation and monitoring in emergency department with reassessment as necessary.
[2017-11-18] MEDS ORDERED: DIAZEPAM 5 MG TABLET PO ONE (21:29)
[2017-11-18] MEDS ORDERED: SENNOSIDES/DOCUSATE 8.6-50 MG 1 EACH TABLET PO ONE (21:30)
[2017-11-18] MEDS ORDERED: DIAZEPAM 5 MG TABLET ONE (21:36)
[2017-11-18] MEDS ORDERED: SENNOSIDES/DOCUSATE 8.6-50 MG 1 EACH TABLET ONE (21:37)
[2017-11-19 09:27] LABS: FREE T4 (FREE THYROXINE) 0.95 ng/dL (0.78-2.19)
[2017-11-19 09:41] LABS: THYROID STIMULATING HORMONE 2.49 uIU/mL (0.47-4.68)
[2017-11-19] MEDS: BENZTROPINE MESYLATE 1 MG TABLET PO SCH (09:41)
[2017-11-19] MEDS: CHLORPROMAZINE HCL 50 MG TABLET PO SCH ×3 (09:41→17:52)
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
[2017-11-20] MEDS: OLANZAPINE 5 MG TABLET PO SCH ×3 (07:22→17:42)
[2017-11-20] MEDS: BENZTROPINE MESYLATE 1 MG TABLET PO SCH (09:25)
[2017-11-20] MEDS: CHLORPROMAZINE HCL 50 MG TABLET PO SCH ×3 (09:25→17:42)
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
[2017-11-21] MEDS: OLANZAPINE 5 MG TABLET PO SCH ×2 (10:50→18:32)
[2017-11-21] MEDS: BENZTROPINE MESYLATE 1 MG TABLET PO SCH (10:50)
[2017-11-21] MEDS: CHLORPROMAZINE HCL 50 MG TABLET PO SCH ×3 (10:50→18:32)
[2017-11-22] MEDS: BENZTROPINE MESYLATE 1 MG TABLET PO SCH (09:21)
[2017-11-22] MEDS: CHLORPROMAZINE HCL 50 MG TABLET PO SCH ×3 (09:21→17:23)
[2017-11-22] MEDS: OLANZAPINE 5 MG TABLET PO SCH ×2 (09:21→17:23)
--- NOTE | 2017-11-22 10:35 | ER Document Report ---
Doctor's Note Notes: 11/22/17 10:33 Medical rounds: Chart reviewed and patient interviewed briefly. Vital signs are unremarkable. Laboratory values are satisfactory. On examination, the patient is alert, oriented, and cooperative. Her only complaint is that of persistently hearing voices. She states that has not changed since her initial evaluation here 6 days ago. She denies any somatic complaints. She is medically stable pending reevaluation by psych.
[2017-11-23] MEDS: BENZTROPINE MESYLATE 1 MG TABLET PO SCH (09:18)
[2017-11-23] MEDS: CHLORPROMAZINE HCL 50 MG TABLET PO SCH ×3 (09:18→17:01)
[2017-11-23] MEDS: OLANZAPINE 5 MG TABLET PO SCH ×2 (09:18→17:01)
--- NOTE | 2017-11-23 12:18 | ER Document Report ---
Doctor's Note Notes: 11/23/17 12:18 Patient has been seen and evaluated resting comfortably no acute distress. Laboratory values previous provider note and vital signs have been evaluated. Patient otherwise looks to be stable for disposition/transfer.
[2017-11-23 15:14] VITALS: BP 120/75
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
== END 2017-11-23 18:03 | disposition home or self-care (01) ==
LOC: ER 21:07
DX: F20.0 Paranoid schizophrenia (principal); T43.592A Poisoning by other antipsychotics and neuroleptics, intentional self-harm, initial encounter; E89.0 Postprocedural hypothyroidism
CPT/HCPCS: 93005; 99285; 96360; 96361; 36415; 84439; 80307 ×4; 84443; 85025; 80053; 81001; 93010; A9270 ×18; J7040; J3490

== ENCOUNTER 2017-12-16 08:56 | Emergency (ER) | payer MEDICARE ==
[2017-12-16] MEDS ORDERED: CHLORPROMAZINE HCL 50 MG TABLET PO ONE (09:22)
[2017-12-16] MEDS ORDERED: BENZTROPINE MESYLATE 1 MG TABLET PO ONE (09:22)
[2017-12-16] MEDS ORDERED: OLANZAPINE 5 MG TABLET PO ONE (09:22)
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
[2017-12-16 09:53] LABS: ALANINE AMINOTRANSFERASE 22 U/L (9-52); ALBUMIN 4.2 g/dL (3.5-5.0); ALKALINE PHOSPHATASE 76 U/L (38-126); ANION GAP 7 (5-19); ASPARTATE AMINO TRANSFERASE 22 U/L (14-36); BILIRUBIN,DIRECT 0.1 mg/dL (0.0-0.4); BILIRUBIN,TOTAL 0.4 mg/dL (0.2-1.3); BLOOD UREA NITROGEN 9 mg/dL (7-20); CALCIUM 9.3 mg/dL (8.4-10.2); CARBON DIOXIDE 24 mmol/L (22-30); CHLORIDE 109 mmol/L (98-107); GLUCOSE 105 mg/dL (75-110); POTASSIUM 3.9 mmol/L (3.6-5.0); SODIUM 140.2 mmol/L (137-145); TOTAL PROTEIN 7.3 g/dL (6.3-8.2)
[2017-12-16 09:54] LABS: ACETAMINOPHEN < 10 ug/mL (10-30); ALCOHOL < 10 mg/dL (NONE DETECTED); SALICYLATE < 1.0 mg/dL (2.0-20.0)
[2017-12-16 10:25] LABS: ABSOLUTE MONOCYTES (AUTO) 0.3 10^3/uL (0.1-1.4); ABSOLUTE NEUT (AUTO) 3.9 10^3/uL (1.7-8.2); BASOPHILS % (AUTO) 0.6 % (0-2); EOSINOPHILS % (AUTO) 0.5 % (0-6); HEMATOCRIT 45.3 % (36.0-47.0); HEMOGLOBIN 15.6 g/dL (12.0-15.5); LYMPHOCYTES % (AUTO) 31.9 % (13-45); MEAN CORPUSCULAR HEMOGLOBIN 32.8 pg (27.0-33.4); MEAN CORPUSCULAR HGB CONC 34.4 g/dL (32.0-36.0); MEAN CORPUSCULAR VOLUME 95 fl (80-97); MONOCYTES % (AUTO) 4.6 % (3-13); PLATELET COUNT 236 10^3/uL (150-450); RED BLOOD COUNT 4.76 10^6/uL (3.72-5.28); RED CELL DISTRIBUTION WIDTH 13.4 % (11.5-14.0); SEGMENTED NEUTROPHILS % (AUTO) 62.4 % (42-78); TOTAL CELLS COUNTED % (AUTO) 100 %; WHITE BLOOD COUNT 6.3 10^3/uL (4.0-10.5)
[2017-12-16 10:29] LABS: APPEARANCE,URINE CLEAR; BILIRUBIN,URINE NEGATIVE (NEGATIVE); COLOR,URINE STRAW; GLUCOSE, URINE NEGATIVE (NEGATIVE); KETONES,URINE NEGATIVE (NEGATIVE); LEUKOCYTE ESTERASE,URINE NEGATIVE (NEGATIVE); NITRITE,URINE NEGATIVE (NEGATIVE); PROTEIN,URINE NEGATIVE (NEGATIVE); URINE SPECIFIC GRAVITY 1.004; UROBILINOGEN,URINE NEGATIVE mg/dL (<2.0)
[2017-12-16 10:47] LABS: URINE AMPHETAMINES SCREEN NEGATIVE; URINE BARBITURATES SCREEN NEGATIVE; URINE BENZODIAZEPINES SCREEN NEGATIVE; URINE COCAINE SCREEN NEGATIVE; URINE MARIJUANA (THC) SCREEN NEGATIVE; URINE METHADONE SCREEN NEGATIVE; URINE PHENCYCLIDINE SCREEN NEGATIVE
[2017-12-16 11:48] VITALS: BP 140/90
--- NOTE | 2017-12-16 22:28 | EKG REPORT ---
SEVERITY:- ABNORMAL ECG - SINUS TACHYCARDIA NONSPECIFIC T ABNORMALITIES, LATERAL LEADS : Confirmed by: Dorothea Schwarz MD 16-Dec-2017 22:27:13
== END 2017-12-16 11:48 | disposition home or self-care (01) ==
LOC: ER 08:56
DX: F20.0 Paranoid schizophrenia (principal); Z79.899 Other long term (current) drug therapy; Z91.14 Patient's other noncompliance with medication regimen
CPT/HCPCS: 93005; 99285; 36415; 80307 ×4; 85025; 80053; 81001; 93010; A9270 ×3; J3490

== ENCOUNTER 2017-12-23 22:34 | Inpatient (IN) | payer MEDICARE ==
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
[2017-12-23 22:59] LABS: ABSOLUTE EOSINOPHILS # (AUTO) 0.2 10^3/uL (0.0-0.6); ABSOLUTE LYMPHOCYTES (AUTO) 4.2 10^3/uL (0.5-4.7); ABSOLUTE MONOCYTES (AUTO) 0.5 10^3/uL (0.1-1.4); ABSOLUTE NEUT (AUTO) 4.1 10^3/uL (1.7-8.2); BASOPHILS % (AUTO) 0.5 % (0-2); EOSINOPHILS % (AUTO) 2.1 % (0-6); HEMATOCRIT 41.8 % (36.0-47.0); HEMOGLOBIN 14.5 g/dL (12.0-15.5); LYMPHOCYTES % (AUTO) 46.4 % (13-45); MEAN CORPUSCULAR HEMOGLOBIN 33.6 pg (27.0-33.4); MEAN CORPUSCULAR HGB CONC 34.7 g/dL (32.0-36.0); MEAN CORPUSCULAR VOLUME 97 fl (80-97); MONOCYTES % (AUTO) 5.6 % (3-13); PLATELET COUNT 202 10^3/uL (150-450); RED BLOOD COUNT 4.32 10^6/uL (3.72-5.28); RED CELL DISTRIBUTION WIDTH 13.5 % (11.5-14.0); SEGMENTED NEUTROPHILS % (AUTO) 45.4 % (42-78); TOTAL CELLS COUNTED % (AUTO) 100 %
[2017-12-23] MEDS ORDERED: KETAMINE HCL INJ 500 MG/10 ML VIAL ONE (23:03)
--- NOTE | 2017-12-23 23:09 | RADIOLOGY REPORT (SQ) ---
Portable chest HISTORY: Shortness of breath. FINDINGS: Heart is not enlarged. Endotracheal tube is in appropriate position. Enteric tube is in place with tip below the diaphragm. No pneumothorax. Lungs are clear. IMPRESSION: Endotracheal tube and enteric tube in place.
[2017-12-23 23:16] LABS: ALANINE AMINOTRANSFERASE 29 U/L (9-52); ALBUMIN 3.8 g/dL (3.5-5.0); ALKALINE PHOSPHATASE 77 U/L (38-126); ANION GAP 9 (5-19); ASPARTATE AMINO TRANSFERASE 21 U/L (14-36); BILIRUBIN,DIRECT 0.1 mg/dL (0.0-0.4); BILIRUBIN,TOTAL 0.3 mg/dL (0.2-1.3); BLOOD UREA NITROGEN 11 mg/dL (7-20); CALCIUM 8.3 mg/dL (8.4-10.2); CARBON DIOXIDE 24 mmol/L (22-30); CHLORIDE 105 mmol/L (98-107); GLUCOSE 164 mg/dL (75-110); POTASSIUM 3.4 mmol/L (3.6-5.0); SODIUM 138.3 mmol/L (137-145); TOTAL PROTEIN 6.6 g/dL (6.3-8.2)
[2017-12-23 23:18] LABS: ACETAMINOPHEN < 10 ug/mL (10-30); ALCOHOL < 10 mg/dL (NONE DETECTED); SALICYLATE < 1.0 mg/dL (2.0-20.0)
[2017-12-23] MEDS ORDERED: RINGERS SOLUTION,LACTATED 1,000 ML IV ONE (23:22)
[2017-12-23] MEDS ORDERED: ROCURONIUM BROMIDE INJ 50 MG/5 ML VIAL IV ONE (23:30)
[2017-12-23] MEDS ORDERED: KETAMINE HCL INJ 500 MG/10 ML VIAL IV ONE (23:30)
[2017-12-24] MEDS ORDERED: RINGERS SOLUTION,LACTATED 1,000 ML IV ONE ×2 (00:14)
[2017-12-24] MEDS ORDERED: ROCURONIUM BROMIDE INJ 50 MG/5 ML VIAL IV ONE (00:30)
[2017-12-24 00:42] LABS: VENOUS BLOOD BASE EXCESS -3.2 mmol/L; VENOUS BLOOD HCO3 22.1 mmol/L (20-32); VENOUS BLOOD PCO2 40.8 mmHg (35-63); VENOUS BLOOD PH 7.35 (7.30-7.42)
[2017-12-24 00:50] LABS: APPEARANCE,URINE CLEAR; BILIRUBIN,URINE NEGATIVE (NEGATIVE); COLOR,URINE STRAW; GLUCOSE, URINE NEGATIVE (NEGATIVE); KETONES,URINE NEGATIVE (NEGATIVE); LEUKOCYTE ESTERASE,URINE NEGATIVE (NEGATIVE); NITRITE,URINE NEGATIVE (NEGATIVE); PROTEIN,URINE NEGATIVE (NEGATIVE); URINE SPECIFIC GRAVITY 1.006; UROBILINOGEN,URINE NEGATIVE mg/dL (<2.0)
[2017-12-24] MEDS ORDERED: GLUCAGON,HUMAN RECOMB 1 MG INJ SUBCUT PRN (01:39)
[2017-12-24] MEDS ORDERED: ACETAMINOPHEN 325 MG TABLET PO PRN (01:39)
[2017-12-24] MEDS ORDERED: NORMAL SALINE 1000 ML 1,000 ML IV PRN (01:39)
[2017-12-24] MEDS ORDERED: DEXTROSE 40% GEL 15 GM TUBE PO PRN ×2 (01:39)
[2017-12-24] MEDS ORDERED: PROMETHAZINE HCL INJ 25 MG/1 ML VIAL IV PRN (01:39)
[2017-12-24] MEDS ORDERED: DEXTROSE 50%-WATER 25 GM/50 ML DISP.SYRIN IV PRN ×2 (01:39)
[2017-12-24] MEDS ORDERED: IPRATROPIUM/ALBUTEROL 0.5-2.5 MG/3 ML AMPUL NEB PRN (01:39)
[2017-12-24 02:11] LABS: URINE AMPHETAMINES SCREEN NEGATIVE; URINE BARBITURATES SCREEN NEGATIVE; URINE BENZODIAZEPINES SCREEN NEGATIVE; URINE COCAINE SCREEN NEGATIVE; URINE MARIJUANA (THC) SCREEN NEGATIVE; URINE METHADONE SCREEN NEGATIVE; URINE PHENCYCLIDINE SCREEN NEGATIVE
--- NOTE | 2017-12-24 02:37 | PDOC H&P ---
History of Present Illness Admission Date/PCP: 12/24/17 01:22 Nata Hernandez Patient complains of: suicidal attempt History of Present Illness: ROBERTA HOROWITZ is a 57 year old female with medical history remarkable for bipolar disorder with psychosis and schizophrenia who came to the emergency department via EMS after her daughter reported that the patient called her to tell her she has taken 2 bottles of pill, unknown drug amount. Upon EMS arrival patient was unresponsive and apneic, patient was bagged on her way to the hospital and posteriorly intubated by the ED attending. Patient was obtunded with GCS3. Patient has been on no sedative in the ED and was not over breathing the ventilator. Patient has been hypotensive with a BP 80/60 which improved after IV fluids. Patient has had several visits to our emergency department for a hallucinations and suicidal attempt, apparently patient is hearing voices after she had a thyroid surgery 7 years ago, she has requested several times to get the "microphone in her throat removed". On 11/23 patient also had a suicidal attempt taking 7 pills of Seroquel. There are several empty bottles in the ED of lorazepam 0.5mg, doxepin 25 mg, clindamycin, clonazepam 0.5 mg and olanzapine 5 mg, we assume that she took all these medications, we do not know the amount. There are also bottles with pills of benzopyrene 1 mg, quetiapine 200 mg and Diciclomyne 20 mg. She probably passed out before taking the rest of the pills. Poison control was called and they recommended supportive care and to repeat the EKG in the morning. There is no family member at the bedside. Past Medical History Psychiatric Medical History: Reports: Alcohol Dependency, Bipolar Disorder, Other - Schizophrenia Past Surgical History Past Surgical History: Reports: Thyroidectomy Social History Smoking Status: Current Every Day Smoker Frequency of Alcohol Use: Heavy - As per records Family History Family History: None Parental Family History Reviewed: No Children Family History Reviewed: NA Sibling(s) Family History Reviewed.: NA Medication/Allergy Home Medications: Dicyclomine HCl [Bentyl 20 mg Tablet] 20 mg PO QIDP PRN 11/17/17 Benztropine Mesylate [Cogentin 1 mg Tablet] 1 tab PO DAILY #14 tab 11/23/17 Chlorpromazine HCl [Thorazine 50 mg Tablet] 50 mg PO TID #42 tablet 11/23/17 Olanzapine [Zyprexa 5 mg Tablet] 5 mg PO Q12 #28 tablet 11/23/17 Benztropine Mesylate [Cogentin 1 mg Tablet] 1 tab PO DAILY #14 tab 12/16/17 Chlorpromazine HCl [Thorazine 50 mg Tablet] 50 mg PO TID #42 tablet 12/16/17 Olanzapine [Zyprexa 5 mg Tablet] 5 mg PO Q12 #28 tablet 12/16/17 Allergies/Adverse Reactions: No Known Allergies Allergy (Verified 12/14/16 12:09) Review of Systems Review of Systems: Unable to obtain as patient is on ventilator Physical Exam Vital Signs: Temp Pulse Resp BP Pulse Ox 97.9 F 20 141/96 H 96 12/24/17 01:26 12/24/17 01:26 12/24/17 01:26 12/24/17 01:26 Additional comments: General appearance: Well-developed, on mechanical ventilator Head: Normocephalic Eyes: Pupils 4 mm slight reactive to light. Ears: External auditory canal and tympanic membranes clear. Nose: No nasal discharge. Throat: Oral cavity with ET tube and OG tube. Neck: Neck supple, without lymphadenopathy or masses Cardiac: Normal S1 and S2. No S3, S4 or murmurs. Rhythm is regular. There is no peripheral edema, cyanosis or pallor. Extremities are warm and well perfused. Capillary refill is less than 2 seconds. No carotid bruits. Lungs: Clear to auscultation and percussion without rales, rhonchi, wheezing or diminished breath sounds. Not using accessory muscles. Abdomen: Positive bowel sounds. Soft. Nondistended. No guarding or rebound. No masses. No hepatosplenomegaly Extremities: No significant deformity or joint abnormality. No edema. Peripheral pulses intact. No varicosities. Neurological: Unable to evaluate Skin: Skin normal color, texture and turgor with no lesions or eruptions, warm and dry. Psychiatric: Unable to evaluate as is on mechanical ventilator Results Laboratory Results: 12/23/17 12/23/17 12/24/17 22:15 22:15 00:27 WBC 9.0 RBC 4.32 Hgb 14.5 Hct 41.8 MCV 97 MCH 33.6 H MCHC 34.7 RDW 13.5 Plt Count 202 Seg Neutrophils % 45.4 Lymphocytes % 46.4 H Monocytes % 5.6 Eosinophils % 2.1 Basophils % 0.5 Absolute Neutrophils 4.1 Absolute Lymphocytes 4.2 Absolute Eosinophils 0.2 Absolute Basophils 0.0 VBG pH 7.35 VBG pCO2 40.8 VBG HCO3 22.1 VBG Base Excess -3.2 Sodium 138.3 Potassium 3.4 L Chloride 105 Carbon Dioxide 24 Anion Gap 9 BUN 11 Creatinine 0.60 Est GFR ( Amer) > 60 Est GFR (Non-Af Amer) > 60 Glucose 164 H Calcium 8.3 L Total Bilirubin 0.3 Direct Bilirubin 0.1 AST 21 ALT 29 Alkaline Phosphatase 77 Total Protein 6.6 Albumin 3.8 Urine Color Urine Appearance Urine pH Ur Specific [place] Urine Protein Urine Glucose (UA) Urine Ketones Urine Blood Urine Nitrite Urine Bilirubin Urine Urobilinogen Ur Leukocyte Esterase Urine WBC (Auto) Urine RBC (Auto) Squamous Epi Cells Auto Urine Mucus (Auto) Urine Ascorbic Acid Acetaminophen < 10 L Serum Alcohol < 10 12/24/17 00:27 WBC RBC Hgb Hct MCV MCH MCHC RDW Plt Count Seg Neutrophils % Lymphocytes % Monocytes % Eosinophils % Basophils % Absolute Neutrophils Absolute Lymphocytes Absolute Eosinophils Absolute Basophils VBG pH VBG pCO2 VBG HCO3 VBG Base Excess Sodium Potassium Chloride Carbon Dioxide Anion Gap BUN Creatinine Est GFR ( Amer) Est GFR (Non-Af Amer) Glucose Calcium Total Bilirubin Direct Bilirubin AST ALT Alkaline Phosphatase Total Protein Albumin Urine Color STRAW Urine Appearance CLEAR Urine pH 6.0 Ur Specific [place] 1.006 Urine Protein NEGATIVE Urine Glucose (UA) NEGATIVE Urine Ketones NEGATIVE Urine Blood NEGATIVE Urine Nitrite NEGATIVE Urine Bilirubin NEGATIVE Urine Urobilinogen NEGATIVE Ur Leukocyte Esterase NEGATIVE Urine WBC (Auto) 0 Urine RBC (Auto) 0 Squamous Epi Cells Auto <1 Urine Mucus (Auto) RARE Urine Ascorbic Acid NEGATIVE Acetaminophen Serum Alcohol Impressions: Chest X-Ray 12/23/17 22:44 IMPRESSION: Endotracheal tube and enteric tube in place. Assessment & Plan - Diagnosis (1) Suicide attempt Is this a current diagnosis for this admission?: Yes Plan: Patient comes to the emergency department after suicidal attempt, likely secondary to her psychosis with hallucination as in past records it states that the voices asked her to commit suicide. Patient has taken multiple medications and currently intubated on mechanical ventilator. Poison control recommended supportive care with repeated EKG in the morning. The patient was transiently hypotensive but her blood pressure has normalized. We will continue with IV fluids. Placed Diprivan as needed. Psychiatric consultation placed. Serum alcohol levels negative, urine drug screen negative. Salicylates and Tylenol level negative. Accu-Cheks every 2 hours with hypoglycemia protocol. EKG requested. (2) Bipolar disorder Qualifiers: Psychotic features: with psychotic features Is this a current diagnosis for this admission?: Yes Plan: Patient has multiple psychiatric problems including bipolar disorder with psychosis and schizophrenia with paranoia. As per records last time patient was placed on Zyprexa, Cogentin and Thorazine - Time Time Spent: 30 to 50 Minutes - Inpatient Certification Based on my medical assessment, after consideration of the patient's comorbidities, presenting symptoms, or acuity I expect that the services needed warrant INPATIENT care.: Yes I certify that my determination is in accordance with my understanding of Medicare's requirements for reasonable and necessary INPATIENT services [42 CFR 412.3e].: Yes Medical Necessity: Risk of Diagnosis Which Will Require Inpatient Eval/Care/ Monitoring
[2017-12-24 04:16] LABS: HEMATOCRIT 40.9 % (36.0-47.0); HEMOGLOBIN 14.1 g/dL (12.0-15.5); MEAN CORPUSCULAR HEMOGLOBIN 33.1 pg (27.0-33.4); MEAN CORPUSCULAR HGB CONC 34.5 g/dL (32.0-36.0); MEAN CORPUSCULAR VOLUME 96 fl (80-97); PLATELET COUNT 178 10^3/uL (150-450); RED BLOOD COUNT 4.26 10^6/uL (3.72-5.28); RED CELL DISTRIBUTION WIDTH 13.3 % (11.5-14.0); WHITE BLOOD COUNT 6.7 10^3/uL (4.0-10.5)
[2017-12-24 04:25] LABS: INTERNATIONAL RATION (INR) 0.96; PROTHROMBIN TIME 13.3 SEC (11.4-15.4)
[2017-12-24 04:26] LABS: PARTIAL THROMBOPLASTIN TIME 29.3 SEC (23.5-35.8)
[2017-12-24 04:33] LABS: ALANINE AMINOTRANSFERASE 27 U/L (9-52); ALBUMIN 3.3 g/dL (3.5-5.0); ALKALINE PHOSPHATASE 68 U/L (38-126); ANION GAP 6 (5-19); ASPARTATE AMINO TRANSFERASE 16 U/L (14-36); BILIRUBIN,DIRECT 0.1 mg/dL (0.0-0.4); BILIRUBIN,TOTAL 0.5 mg/dL (0.2-1.3); BLOOD UREA NITROGEN 8 mg/dL (7-20); CALCIUM 8.6 mg/dL (8.4-10.2); CARBON DIOXIDE 24 mmol/L (22-30); CHLORIDE 113 mmol/L (98-107); GLUCOSE 108 mg/dL (75-110); POTASSIUM 4.2 mmol/L (3.6-5.0); SODIUM 142.6 mmol/L (137-145); TOTAL PROTEIN 5.9 g/dL (6.3-8.2)
[2017-12-24] MEDS: HEPARIN SOD (PORCINE) 5,000 UNIT/ML 1 ML SYRINGE SUBCUT SCH ×3 (05:35→21:49)
[2017-12-24] MEDS ORDERED: PANTOPRAZOLE SODIUM 40 MG VIAL IV SCH (06:00)
[2017-12-24 06:04] LABS: ARTERIAL BLOOD BASE EXCESS -3.3 mmol/L; ARTERIAL BLOOD H2CO3 1.07 mmol/L (1.05-1.35); ARTERIAL BLOOD O2 SATURATION 97.5 % (94-98); ARTERIAL BLOOD PCO2 35.5 mmHg (35-45); ARTERIAL BLOOD PH 7.39 (7.35-7.45); ARTERIAL BLOOD PO2 98.8 mmHg (80-100); ARTERIAL BLOOD TOTAL CO2 22.1 mmol/L (21-25)
[2017-12-24 06:18] LABS: ARTERIAL BLOOD FIO2 30%
--- NOTE | 2017-12-24 08:00 | EKG REPORT ---
SEVERITY:- BORDERLINE ECG - SINUS RHYTHM NONSPECIFIC ST-T CHANGES- INFERIOR LEADS : Confirmed by: Vasile Wright MD 24-Dec-2017 08:00:28
--- NOTE | 2017-12-24 08:01 | EKG REPORT ---
SEVERITY:- BORDERLINE ECG - SINUS TACHYCARDIA BORDERLINE T ABNORMALITIES, DIFFUSE LEADS : Confirmed by: Vasile Wright MD 24-Dec-2017 08:01:09
--- NOTE | 2017-12-24 13:53 | PDOC PROGRESS REPORT ---
Subjective Progress Note for:: 12/24/17 Subjective:: ROBERTA HOROWITZ is a 57 year old female who came to the emergency department via EMS after her daughter reported that the patient called her to tell her she has taken 2 bottles of pills (unknown drugs & amounts). EMS was summoned and upon arrival found the patient unresponsive and apneic. She was endotracheally intubated and given ventilatory assistance with a bag device in route to the hospital. Upon arrival in the emergency room she was found to be obtunded with a [place] Coma Scale score of 3. Patient was not given a sedative for intubation nor was she given any sedatives in the emergency room when she was placed on a ventilator. She was initially hypotensive in the emergency room with a blood pressure 80/60 that improved rapidly when she was given a bolus dose of normal saline. Family members/significant others provided the history that she had recently (11/23/17) had attempted suicide by taking 7 Seroquel tablets. At her home EMS found several empty medication bottles including doxepin 25 mg, clonazepam 0.5 mg, olanzapine 5 mg, lorazepam 0.5 mg and clindamycin 150 mg. Patient was admitted to the intensive care unit for symptomatic and supportive care. Reason For Visit: Intentional drug overdose/suicide attempt Physical Exam Vital Signs: Temp Pulse Resp BP Pulse Ox 98.6 F 80 12 112/71 99 12/24/17 12:50 12/24/17 12:00 12/24/17 12:50 12/24/17 12:50 12/24/17 12:50 Intake & Output 12/22/17 12/23/17 12/24/17 23:59 23:59 23:59 Intake Total 2437 Output Total 2225 Balance 212 Weight 68.7 kg General appearance: PRESENT: well-developed, well-nourished, other - Endotracheally intubated and mechanically ventilated Head exam: PRESENT: atraumatic, normocephalic Eye exam: ABSENT: conjunctival injection, periorbital swelling, scleral icterus Ear exam: PRESENT: normal external ear exam. ABSENT: bleeding, drainage Mouth exam: PRESENT: neck supple, other - Endotracheal tube in good position Neck exam: ABSENT: thyromegaly, tracheal deviation Respiratory exam: PRESENT: clear to auscultation froilan, symmetrical, other - Mechanically ventilated Cardiovascular exam: PRESENT: RRR. ABSENT: clicks, gallop, rubs Vascular exam: PRESENT: normal capillary refill. ABSENT: pallor GI/Abdominal exam: PRESENT: Brewer's sign, soft Rectal exam: PRESENT: deferred Extremities exam: ABSENT: joint swelling, pedal edema Musculoskeletal exam: PRESENT: normal inspection. ABSENT: deformity, dislocation Neurological exam: PRESENT: other - Obtunded but responsive to noxious stimuli Psychiatric exam: PRESENT: other - Due to her obtunded status the patient can not be further evaluated Skin exam: ABSENT: jaundice, rash, urticaria Results Laboratory Results: 12/24/17 03:57 12/24/17 03:57 12/24/17 12/24/17 12/24/17 03:57 03:57 05:55 WBC 6.7 RBC 4.26 Hgb 14.1 Hct 40.9 MCV 96 MCH 33.1 MCHC 34.5 RDW 13.3 Plt Count 178 Carbonic Acid 1.07 HCO3/H2CO3 Ratio 19:1 ABG pH 7.39 ABG pCO2 35.5 ABG pO2 98.8 ABG HCO3 21.0 ABG O2 Saturation 97.5 ABG Base Excess -3.3 FiO2 30% Sodium 142.6 Potassium 4.2 Chloride 113 H Carbon Dioxide 24 Anion Gap 6 BUN 8 Creatinine 0.60 Est GFR ( Amer) > 60 Est GFR (Non-Af Amer) > 60 Glucose 108 Calcium 8.6 Total Bilirubin 0.5 AST 16 ALT 27 Alkaline Phosphatase 68 Total Protein 5.9 L Albumin 3.3 L EKG Comments: Interpreted by me: Normal sinus rhythm at [address]-T changes. No evidence of cardiac ischemic change or injury. No ectopy noted. Impressions: Chest X-Ray 12/23/17 22:44 IMPRESSION: Endotracheal tube and enteric tube in place. Status: Image reviewed by me - Chest x-ray reviewed by me: View is a single AP view, no acute cardiopulmonary disease is noted, endotracheal tube is well- positioned. Assessment & Plan - Diagnosis (1) Polysubstance overdose Qualifiers: Encounter type: initial encounter Injury intent: intentional self-harm Qualified Code(s): T50.902A - Poisoning by unspecified drugs, medicaments and biological substances, intentional self-harm, initial encounter Is this a current diagnosis for this admission?: Yes Plan: Roberta will be provided with maintenance fluids, ventilatory support, symptomatic cares and supportive cares as well as close monitoring in the intensive care unit until she has recovered to her baseline function. (2) Altered mental status Qualifiers: Altered mental status type: coma Coma depth: [place] coma 3-8 Coma timing : in the field (EMT or ambulance) Qualified Code(s): R40.2431 - [place] coma scale score 3-8, in the field [EMT or ambulance] Is this a current diagnosis for this admission?: Yes Plan: Patient is obtunded due to a poly-pharmacologic overdose. She will be given supportive care until her chemically induced delirium and encephalopathy have resolved. (3) Hypotension Qualifiers: Hypotension type: unspecified hypotension type Qualified Code(s): I95.9 - Hypotension, unspecified Is this a current diagnosis for this admission?: Yes Plan: Roberta suffered from transient mild hypotension in the emergency room where her blood pressure was found to be 80/60 but responded rapidly to IV fluid rehydration. She is showing no signs of hypotension since that time. Data laboratory evaluations (CBC, BMP and magnesium level) will be used to monitor any sequelae related to her transient hypotension. (4) Suicide attempt Is this a current diagnosis for this admission?: Yes Plan: By history the patient took at least 2 bottles of pills which is what she told her daughter when she called her and her intent was to commit suicide. This patient will require psychiatric evaluation and probable inpatient psychiatry after her medical stabilization. (5) Bipolar disorder Qualifiers: Psychotic features: with psychotic features Is this a current diagnosis for this admission?: Yes Plan: This patient has a history of bipolar disorder. Suicidal attempts for bipolar depressed patient's are unfortunately all too common. Psychiatric evaluation will be obtained as soon as the patient is medically stable and alert. - Time Time Spent with patient: 35 or more minutes Medications reviewed and adjusted accordingly: Yes Anticipated discharge: Other - Inpatient psychiatric care if recommended by psychiatric boating safety officer
[2017-12-24] MEDS ORDERED: ACETAMINOPHEN 650 MG SUPP.RECT PR PRN (13:55)
--- NOTE | 2017-12-24 14:06 | PDOC CONSULTATION ---
Consultation Consult Date: 12/24/17 Attending physician:: TOM LANE Consult reason:: drug od History of Present Illness Admission Date/PCP: 12/24/17 01:22 History of Present Illness: ROBERTA HOROWITZ is a 57 year old female Long history of mental illness called her family members and said she is taking several bottles of pills the time EMS came air to her residence she was obtunded and bagged subsequently intubated now she is currently in the ICU intubated and sedated she is stable on pressure support and CPAP but is not arousable at this time. No family members are at the bedside Past Medical History Psychiatric Medical History: Reports: Alcohol Dependency, Bipolar Disorder, Depression, Other - Schizophrenia Past Surgical History Past Surgical History: Reports: Thyroidectomy Social History Information Source: [facility] Records Lives with: Family Smoking Status: Unknown if Ever Smoked Frequency of Alcohol Use: Heavy Hx Recreational Drug Use: - unknown Hx Prescription Drug Abuse: Yes - Advance Directive Resuscitation Status: Full Code Family History Parental Family History Reviewed: No Children Family History Reviewed: No Sibling(s) Family History Reviewed.: No Medication/Allergy Home Medications: Benztropine Mesylate [Cogentin 1 mg Tablet] 1 mg PO DAILY 12/24/17 Doxepin HCl [Sinequan 25 Mg Capsule] 25 mg PO QHS 12/24/17 Olanzapine [Zyprexa 5 mg Tablet] 5 mg PO Q12 12/24/17 Allergies/Adverse Reactions: No Known Allergies Allergy (Verified 12/14/16 12:09) Review of Systems ROS unobtainable: Due to endotracheal tube Physical Exam Vital Signs: Temp Pulse Resp BP Pulse Ox 97.5 F 78 15 116/72 99 12/24/17 08:00 12/24/17 08:00 12/24/17 08:00 12/24/17 08:00 12/24/17 08:00 Intake & Output 12/23/17 12/24/17 12/25/17 06:59 06:59 06:59 Intake Total 2437 Output Total 1600 400 Balance 837 -400 Weight 68.7 kg General appearance: PRESENT: no acute distress, disheveled, well-developed, well -nourished. ABSENT: cooperative Head exam: PRESENT: atraumatic, normocephalic Eye exam: PRESENT: conjunctiva pale. ABSENT: nystagmus, periorbital swelling, scleral icterus Mouth exam: PRESENT: dry mucosa, neck supple, tongue midline, other - ET tube in place Neck exam: PRESENT: other - Surgical scar suggestive of thyroidectomy. ABSENT: carotid bruit, JVD, lymphadenopathy, thyromegaly, tracheal deviation, tracheostomy Respiratory exam: PRESENT: decreased breath sounds, prolonged expiratory phas, rales, rhonchi, symmetrical, unlabored. ABSENT: retraction, stridor, tachypnea Cardiovascular exam: PRESENT: RRR, +S1, +S2 Pulses: PRESENT: normal radial pulses GI/Abdominal exam: PRESENT: soft. ABSENT: tenderness Gentrourinary exam: PRESENT: indwelling catheter Extremities exam: ABSENT: calf tenderness, clubbing, joint swelling Musculoskeletal exam: ABSENT: ambulatory, deformity, dislocation Neurological exam: ABSENT: awake Skin exam: PRESENT: dry, warm Results Laboratory Results: 12/24/17 03:57 12/24/17 03:57 12/24/17 12/24/17 12/24/17 03:57 03:57 05:55 WBC 6.7 RBC 4.26 Hgb 14.1 Hct 40.9 MCV 96 MCH 33.1 MCHC 34.5 RDW 13.3 Plt Count 178 Carbonic Acid 1.07 HCO3/H2CO3 Ratio 19:1 ABG pH 7.39 ABG pCO2 35.5 ABG pO2 98.8 ABG HCO3 21.0 ABG O2 Saturation 97.5 ABG Base Excess -3.3 FiO2 30% Sodium 142.6 Potassium 4.2 Chloride 113 H Carbon Dioxide 24 Anion Gap 6 BUN 8 Creatinine 0.60 Est GFR ( Amer) > 60 Est GFR (Non-Af Amer) > 60 Glucose 108 Calcium 8.6 Total Bilirubin 0.5 AST 16 ALT 27 Alkaline Phosphatase 68 Total Protein 5.9 L Albumin 3.3 L Impressions: Chest X-Ray 12/23/17 22:44 IMPRESSION: Endotracheal tube and enteric tube in place. Assessment & Plan - Diagnosis (1) Acute respiratory failure Is this a current diagnosis for this admission?: Yes Plan: Oxygenate and ventilate as necessary to maintain adequate pH and SaO2 this time the patient does demonstrate spontaneous respirations with the assist of pressure support and CPAP (2) Polysubstance overdose Qualifiers: Encounter type: initial encounter Injury intent: intentional self-harm Qualified Code(s): T50.902A - Poisoning by unspecified drugs, medicaments and biological substances, intentional self-harm, initial encounter Is this a current diagnosis for this admission?: Yes - Time Total Critical Time (Minutes): 55
[2017-12-24] MEDS: POTASSI CL 20 MEQ/D5-1/2NS 1L 1,000 ML IV PRN ×2 (14:59→21:55)
[2017-12-24] MEDS: PROPOFOL 1,000 MG/100 ML INFUS..BTL IV PRN (16:42)
[2017-12-24] MEDS: PANTOPRAZOLE SODIUM 40 MG VIAL IV SCH (21:51)
[2017-12-25] MEDS: PROPOFOL 1,000 MG/100 ML INFUS..BTL IV PRN ×3 (00:09→10:22)
[2017-12-25] MEDS: POTASSI CL 20 MEQ/D5-1/2NS 1L 1,000 ML IV PRN ×4 (03:29→21:40)
[2017-12-25 04:10] LABS: HEMATOCRIT 39.6 % (36.0-47.0); HEMOGLOBIN 13.4 g/dL (12.0-15.5); MEAN CORPUSCULAR HEMOGLOBIN 32.5 pg (27.0-33.4); MEAN CORPUSCULAR HGB CONC 33.8 g/dL (32.0-36.0); MEAN CORPUSCULAR VOLUME 96 fl (80-97); PLATELET COUNT 140 10^3/uL (150-450); RED BLOOD COUNT 4.12 10^6/uL (3.72-5.28); RED CELL DISTRIBUTION WIDTH 13.6 % (11.5-14.0); WHITE BLOOD COUNT 8.5 10^3/uL (4.0-10.5)
[2017-12-25 04:15] LABS: INTERNATIONAL RATION (INR) 0.96; PROTHROMBIN TIME 13.3 SEC (11.4-15.4)
[2017-12-25 04:16] LABS: PARTIAL THROMBOPLASTIN TIME 37.1 SEC (23.5-35.8)
[2017-12-25 04:24] LABS: ALANINE AMINOTRANSFERASE 16 U/L (9-52); ALBUMIN 2.9 g/dL (3.5-5.0); ALKALINE PHOSPHATASE 61 U/L (38-126); ANION GAP 7 (5-19); ASPARTATE AMINO TRANSFERASE 14 U/L (14-36); BILIRUBIN,TOTAL 0.2 mg/dL (0.2-1.3); BLOOD UREA NITROGEN 4 mg/dL (7-20); CALCIUM 8.6 mg/dL (8.4-10.2); CARBON DIOXIDE 22 mmol/L (22-30); CHLORIDE 114 mmol/L (98-107); GLUCOSE 101 mg/dL (75-110); PHOSPHORUS 3.3 mg/dL (2.5-4.5); POTASSIUM 3.7 mmol/L (3.6-5.0); SODIUM 143.1 mmol/L (137-145); TOTAL PROTEIN 5.4 g/dL (6.3-8.2)
[2017-12-25] MEDS: HEPARIN SOD (PORCINE) 5,000 UNIT/ML 1 ML SYRINGE SUBCUT SCH ×3 (05:30→21:22)
[2017-12-25 06:30] LABS: ARTERIAL BLOOD BASE EXCESS -0.3 mmol/L; ARTERIAL BLOOD H2CO3 1.17 mmol/L (1.05-1.35); ARTERIAL BLOOD HCO3 24.2 mmol/L (20-24); ARTERIAL BLOOD O2 SATURATION 96.8 % (94-98); ARTERIAL BLOOD PH 7.41 (7.35-7.45); ARTERIAL BLOOD PO2 87.7 mmHg (80-100); ARTERIAL BLOOD TOTAL CO2 25.4 mmol/L (21-25)
[2017-12-25 06:31] LABS: ARTERIAL BLOOD FIO2 30%
--- NOTE | 2017-12-25 07:18 | RADIOLOGY REPORT (SQ) ---
CLINICAL HISTORY: resp failure COMPARISON: December 23, 2017. TECHNIQUE: XR CHEST 1 VIEW 12/25/2017 6:00 AM CDT FINDINGS: Cardiac silhouette is normal in size. Lungs are clear without consolidation, atelectasis, mass or edema. There is no pleural effusion. There is no pneumothorax. There are no acute osseous findings. Endotracheal tube tip is in the midtrachea. NG tube tip is below the diaphragm. IMPRESSION: No pneumonia.
[2017-12-25] MEDS: PANTOPRAZOLE SODIUM 40 MG VIAL IV SCH ×2 (09:28→21:20)
--- NOTE | 2017-12-25 09:38 | EKG REPORT ---
SEVERITY:- NORMAL ECG - SINUS RHYTHM : Confirmed by: Vasile Wright MD 25-Dec-2017 09:37:32
[2017-12-25] MEDS ORDERED: ACETAMINOPHEN 325 MG TABLET ONE (14:12)
[2017-12-25] MEDS: OLANZAPINE INJ/PF 10 MG SDV IM PRN ×2 (15:24→23:59)
[2017-12-25] MEDS: BENZTROPINE MESYLATE 1 MG TABLET PO SCH ×2 (16:31→18:31)
[2017-12-25] MEDS: ACETAMINOPHEN 325 MG TABLET PO PRN (18:31)
--- NOTE | 2017-12-25 19:38 | PDOC PROGRESS REPORT ---
Subjective Progress Note for:: 12/25/17 Subjective:: ROBERTA HOROWITZ is a 57 year old female who came to the emergency department via EMS after her daughter reported that the patient called her to tell her she has taken 2 bottles of pills (unknown drugs & amounts). EMS was summoned and upon arrival found the patient unresponsive and apneic. She was endotracheally intubated and given ventilatory assistance with a bag device in route to the hospital. Upon arrival in the emergency room she was found to be obtunded with a Hubert[place] Coma Scale score of 3. Patient was not given a sedative for intubation nor was she given any sedatives in the emergency room when she was placed on a ventilator. She was initially hypotensive in the emergency room with a blood pressure 80/60 that improved rapidly when she was given a bolus dose of normal saline. Family members/significant others provided the history that she had recently (11/23/17) had attempted suicide by taking 7 Seroquel tablets. At her home EMS found several empty medication bottles including doxepin 25 mg, clonazepam 0.5 mg, olanzapine 5 mg, lorazepam 0.5 mg and clindamycin 150 mg. Patient was admitted to the intensive care unit for symptomatic and supportive care. 12/25/17: Roberta is doing better today and seems to be waking up to the point where she can follow commands to squeeze hands and open eyes. We will therefore stop her propofol sedation and extubate her. I reviewed her chest x-ray which was negative for acute disease or pneumothorax and showed the endotracheal tube in good position. Her laboratory work today was essentially unremarkable. We will plan to resume her medications for control of her psychiatric symptoms as soon as she is awake and alert. An involuntary committal will be sought such that we can assure that she receives appropriate psychiatric evaluation prior to any disposition. Reason For Visit: SUICIDAL ATTEMPT Physical Exam Vital Signs: Temp Pulse Resp BP Pulse Ox 101.1 F H 104 H 16 125/98 H 96 12/25/17 18:00 12/25/17 16:00 12/25/17 18:00 12/25/17 17:51 12/25/17 16:00 Intake & Output 12/23/17 12/24/17 12/25/17 23:59 23:59 23:59 Intake Total 4453 2927 Output Total 1128 6026 Balance 756 -48 Weight 68.7 kg 66.8 kg General appearance: PRESENT: no acute distress, other - Intubated for mechanical ventilation Head exam: PRESENT: atraumatic, normocephalic Eye exam: ABSENT: conjunctival injection, periorbital swelling, scleral icterus Ear exam: PRESENT: normal external ear exam. ABSENT: drainage Mouth exam: PRESENT: neck supple, other - Endotracheal tube in good position Neck exam: ABSENT: thyromegaly, tracheal deviation Respiratory exam: PRESENT: symmetrical, other - Mechanical ventilation on CPAP mode Cardiovascular exam: PRESENT: RRR. ABSENT: clicks, gallop, rubs Vascular exam: PRESENT: normal capillary refill. ABSENT: pallor GI/Abdominal exam: PRESENT: normal bowel sounds, soft Rectal exam: PRESENT: deferred Extremities exam: ABSENT: joint swelling, pedal edema Musculoskeletal exam: PRESENT: normal inspection. ABSENT: deformity, dislocation Neurological exam: PRESENT: altered - Mildly sedated for ventilator purposes, reflexes normal Psychiatric exam: PRESENT: other - Still fairly sedated but follows commands well Skin exam: ABSENT: jaundice, rash, urticaria Results Laboratory Results: 12/25/17 03:59 12/25/17 03:59 12/25/17 12/25/17 12/25/17 03:59 03:59 06:20 WBC 8.5 RBC 4.12 Hgb 13.4 Hct 39.6 MCV 96 MCH 32.5 MCHC 33.8 RDW 13.6 Plt Count 140 L Carbonic Acid 1.17 HCO3/H2CO3 Ratio 20:1 ABG pH 7.41 ABG pCO2 39.0 ABG pO2 87.7 ABG HCO3 24.2 H ABG O2 Saturation 96.8 ABG Base Excess -0.3 FiO2 30% Sodium 143.1 Potassium 3.7 Chloride 114 H Carbon Dioxide 22 Anion Gap 7 BUN 4 L Creatinine 0.51 L Est GFR ( Amer) > 60 Est GFR (Non-Af Amer) > 60 Glucose 101 Calcium 8.6 Phosphorus 3.3 Magnesium 2.0 Total Bilirubin 0.2 AST 14 ALT 16 Alkaline Phosphatase 61 Total Protein 5.4 L Albumin 2.9 L Impressions: Chest X-Ray 12/25/17 06:00 IMPRESSION: No pneumonia. Assessment & Plan - Diagnosis (1) Polysubstance overdose Qualifiers: Encounter type: initial encounter Injury intent: intentional self-harm Qualified Code(s): T50.902A - Poisoning by unspecified drugs, medicaments and biological substances, intentional self-harm, initial encounter Is this a current diagnosis for this admission?: Yes Plan: Roberta will be provided with maintenance fluids, ventilatory support, symptomatic cares and supportive cares as well as close monitoring in the intensive care unit until she has recovered to her baseline function. (2) Altered mental status Qualifiers: Altered mental status type: coma Coma depth: Adrian coma 3-8 Coma timing : in the field (EMT or ambulance) Qualified Code(s): R40.2431 - Hubertus coma scale score 3-8, in the field [EMT or ambulance] Is this a current diagnosis for this admission?: Yes Plan: Patient is obtunded due to a poly-pharmacologic overdose. She will be given supportive care until her chemically induced delirium and encephalopathy have resolved. 12/25/17: Patient will be extubated today. When she is awake and alert will restart her usual medications and diet as appropriate. (3) Hypotension Qualifiers: Hypotension type: unspecified hypotension type Qualified Code(s): I95.9 - Hypotension, unspecified Is this a current diagnosis for this admission?: Yes Plan: Roberta suffered from transient mild hypotension in the emergency room where her blood pressure was found to be 80/60 but responded rapidly to IV fluid rehydration. She is showing no signs of hypotension since that time. Data laboratory evaluations (CBC, BMP and magnesium level) will be used to monitor any sequelae related to her transient hypotension. (4) Suicide attempt Is this a current diagnosis for this admission?: Yes Plan: By history the patient took at least 2 bottles of pills which is what she told her daughter when she called her and her intent was to commit suicide. This patient will require psychiatric evaluation and probable inpatient psychiatry after her medical stabilization. 12/25/17: An involuntary committal will be sought to prevent the patient from leaving the hospital without appropriate psychiatric evaluation. A psychiatric consult has been placed. (5) Bipolar disorder Qualifiers: Psychotic features: with psychotic features Is this a current diagnosis for this admission?: Yes Plan: This patient has a history of bipolar disorder. Suicidal attempts for bipolar depressed patient's are unfortunately all too common. Psychiatric evaluation will be obtained as soon as the patient is medically stable and alert. - Time Time Spent with patient: 35 or more minutes
[2017-12-25] MEDS: DOXEPIN HCL 25 MG CAPSULE PO SCH (21:21)
[2017-12-25] MEDS: OLANZAPINE 5 MG TABLET PO SCH (21:21)
[2017-12-26] MEDS: POTASSI CL 20 MEQ/D5-1/2NS 1L 1,000 ML IV PRN (04:12)
[2017-12-26 05:39] LABS: HEMATOCRIT 37.9 % (36.0-47.0); HEMOGLOBIN 13.1 g/dL (12.0-15.5); MEAN CORPUSCULAR HEMOGLOBIN 32.9 pg (27.0-33.4); MEAN CORPUSCULAR HGB CONC 34.5 g/dL (32.0-36.0); MEAN CORPUSCULAR VOLUME 95 fl (80-97); PLATELET COUNT 153 10^3/uL (150-450); RED BLOOD COUNT 3.97 10^6/uL (3.72-5.28); RED CELL DISTRIBUTION WIDTH 13.2 % (11.5-14.0); WHITE BLOOD COUNT 4.8 10^3/uL (4.0-10.5)
[2017-12-26] MEDS: HEPARIN SOD (PORCINE) 5,000 UNIT/ML 1 ML SYRINGE SUBCUT SCH ×3 (05:45→22:10)
[2017-12-26 06:03] LABS: ANION GAP 7 (5-19); BLOOD UREA NITROGEN 2 mg/dL (7-20); CALCIUM 8.7 mg/dL (8.4-10.2); CARBON DIOXIDE 24 mmol/L (22-30); CHLORIDE 114 mmol/L (98-107); GLUCOSE 111 mg/dL (75-110); POTASSIUM 3.8 mmol/L (3.6-5.0); SODIUM 145.1 mmol/L (137-145)
[2017-12-26] MEDS: OLANZAPINE 5 MG TABLET PO SCH ×2 (09:34→22:10)
[2017-12-26] MEDS: ACETAMINOPHEN 325 MG TABLET PO PRN (09:34)
[2017-12-26] MEDS: FAMOTIDINE 20 MG TABLET PO SCH ×2 (09:34→22:10)
[2017-12-26] MEDS: BENZTROPINE MESYLATE 1 MG TABLET PO SCH (09:34)
--- NOTE | 2017-12-26 12:19 | PDOC PROGRESS REPORT ---
Subjective Progress Note for:: 12/26/17 Subjective:: ROBERTA HOROWITZ is a 57 year old female who came to the emergency department via EMS after her daughter reported that the patient called her to tell her she has taken 2 bottles of pills (unknown drugs & amounts). EMS was summoned and upon arrival found the patient unresponsive and apneic. She was endotracheally intubated and given ventilatory assistance with a bag device in route to the hospital. Upon arrival in the emergency room she was found to be obtunded with a [place] Coma Scale score of 3. Patient was not given a sedative for intubation nor was she given any sedatives in the emergency room when she was placed on a ventilator. She was initially hypotensive in the emergency room with a blood pressure 80/60 that improved rapidly when she was given a bolus dose of normal saline. Family members/significant others provided the history that she had recently (11/23/17) had attempted suicide by taking 7 Seroquel tablets. At her home EMS found several empty medication bottles including doxepin 25 mg, clonazepam 0.5 mg, olanzapine 5 mg, lorazepam 0.5 mg and clindamycin 150 mg. Patient was admitted to the intensive care unit for symptomatic and supportive care. 12/25/17: Roberta is doing better today and seems to be waking up to the point where she can follow commands to squeeze hands and open eyes. We will therefore stop her propofol sedation and extubate her. I reviewed her chest x-ray which was negative for acute disease or pneumothorax and showed the endotracheal tube in good position. Her laboratory work today was essentially unremarkable. We will plan to resume her medications for control of her psychiatric symptoms as soon as she is awake and alert. An involuntary committal will be sought such that we can assure that she receives appropriate psychiatric evaluation prior to any disposition. 12/26/17: Roberta is markedly improved today she is awake and alert and conversant on exam. She admits that she had tried to kill herself and seems to be slightly remorseful about this although she tends to be fairly [id number] rather than the emotional in her statements. Her daily laboratory work is unremarkable and her sputum Gram stain and culture were returned as negative. She denies current pain or other discomfort and is content with her current diet and level of activity. She offers no acute complaints and denies nausea, abdominal pain, chest pain, dyspnea, headache and sore throat. She will continue observation in the ICU until after she has been evaluated by psychiatry. We will continue to provide symptomatic and supportive care until that time. Reason For Visit: SUICIDAL ATTEMPT Physical Exam Vital Signs: Temp Pulse Resp BP Pulse Ox 98.8 F 92 22 H 110/62 96 12/26/17 10:07 12/26/17 07:00 12/26/17 10:07 12/26/17 10:07 12/25/17 16:00 Intake & Output 12/24/17 12/25/17 12/26/17 23:59 23:59 23:59 Intake Total 4441 4490 2557 Output Total 3685 5075 3550 Balance 077 -715 -695 Weight 68.7 kg 66.8 kg 65.3 kg General appearance: PRESENT: no acute distress, cooperative Head exam: PRESENT: atraumatic, normocephalic Eye exam: PRESENT: EOMI. ABSENT: conjunctival injection, periorbital swelling, scleral icterus Ear exam: PRESENT: normal external ear exam. ABSENT: drainage Mouth exam: PRESENT: neck supple, tongue midline Neck exam: ABSENT: thyromegaly, tracheal deviation Respiratory exam: PRESENT: clear to auscultation froilan, symmetrical, unlabored Cardiovascular exam: PRESENT: RRR. ABSENT: clicks, gallop, rubs Vascular exam: PRESENT: normal capillary refill. ABSENT: pallor GI/Abdominal exam: PRESENT: normal bowel sounds, soft Rectal exam: PRESENT: deferred Extremities exam: ABSENT: joint swelling, pedal edema Musculoskeletal exam: PRESENT: full ROM, normal inspection Neurological exam: PRESENT: alert, oriented to person, oriented to place, oriented to time, oriented to situation, CN II-XII grossly intact. ABSENT: motor sensory deficit Psychiatric exam: PRESENT: depressed, other - Subdued affect Skin exam: ABSENT: jaundice, rash, urticaria Results Laboratory Results: 12/26/17 05:24 12/26/17 05:24 12/26/17 12/26/17 05:24 05:24 WBC 4.8 RBC 3.97 Hgb 13.1 Hct 37.9 MCV 95 MCH 32.9 MCHC 34.5 RDW 13.2 Plt Count 153 Sodium 145.1 H Potassium 3.8 Chloride 114 H Carbon Dioxide 24 Anion Gap 7 BUN 2 L Creatinine 0.55 Est GFR ( Amer) > 60 Est GFR (Non-Af Amer) > 60 Glucose 111 H Calcium 8.7 Impressions: Chest X-Ray 12/25/17 06:00 IMPRESSION: No pneumonia. Assessment & Plan - Diagnosis (1) Polysubstance overdose Qualifiers: Encounter type: initial encounter Injury intent: intentional self-harm Qualified Code(s): T50.902A - Poisoning by unspecified drugs, medicaments and biological substances, intentional self-harm, initial encounter Is this a current diagnosis for this admission?: Yes Plan: Robetra will be provided with maintenance fluids, ventilatory support, symptomatic cares and supportive cares as well as close monitoring in the intensive care unit until she has recovered to her baseline function. 12/26/17: Roberta has recovered to her baseline mental status. She will continue to receive care in the ICU until she has been evaluated by psychiatry and appropriate disposition can be arranged. She will be continued with supportive and symptomatic cares until her discharge. (2) Altered mental status Qualifiers: Altered mental status type: coma Coma depth: Adrian coma 3-8 Coma timing : in the field (EMT or ambulance) Qualified Code(s): R40.2431 - Adrian coma scale score 3-8, in the field [EMT or ambulance] Is this a current diagnosis for this admission?: Yes Plan: Patient is obtunded due to a poly-pharmacologic overdose. She will be given supportive care until her chemically induced delirium and encephalopathy have resolved. 12/25/17: Patient will be extubated today. When she is awake and alert will restart her usual medications and diet as appropriate. 12/26/17: Roberta's mental status has returned to her baseline. She will be observed during the remainder of her hospitalization for any changes in her mental status but may recur. (3) Hypotension Qualifiers: Hypotension type: unspecified hypotension type Qualified Code(s): I95.9 - Hypotension, unspecified Is this a current diagnosis for this admission?: Yes Plan: Roberta suffered from transient mild hypotension in the emergency room where her blood pressure was found to be 80/60 but responded rapidly to IV fluid rehydration. She has shown no signs of hypotension since that time. Daily laboratory evaluations (CBC, BMP and magnesium level) will be used to monitor any sequelae related to her transient hypotension. (4) Suicide attempt Is this a current diagnosis for this admission?: Yes Plan: By history the patient took at least 2 bottles of pills which is what she told her daughter when she called her and her intent was to commit suicide. This patient will require psychiatric evaluation and probable inpatient psychiatry after her medical stabilization. 12/25/17: An involuntary committal will be sought to prevent the patient from leaving the hospital without appropriate psychiatric evaluation. A psychiatric consult has been placed. (5) Bipolar disorder Qualifiers: Psychotic features: with psychotic features Is this a current diagnosis for this admission?: Yes Plan: This patient has a history of bipolar disorder. Suicidal attempts for bipolar depressed patient's are unfortunately all too common. Psychiatric evaluation will be obtained as soon as the patient is medically stable and alert. 12/26/17: Roberta his usual medications for control of her bipolar state have been restarted. These will be continued for the remainder of her hospital stay unless changed by the psychiatric customer relations advisor. - Time Time Spent with patient: 25-34 minutes
--- NOTE | 2017-12-26 14:51 | PSYCHOLOGICAL NOTE ---
Psych Note - Psych Note Date seen by psych provider: 12/26/17 Time seen by psych provider: 01:35 Psych Note: Reason for consult: hallucinations Clinician conducted check in with patient. Patient is unable to engage Clinician at this time. Nurse at bed side. Patient is groggy and voice is weak. Patient is able to endorse that she is hearing her sister's voice and that she is nagging her at the moment. Patient disclosed that her last appointment was about three months ago at [facility] and that she is non compliant with her medication regiment. Patient states that the last thing she remembers about night is texting her daughter and telling her to go look on her dresser for something. And then she woke up in the hospital. Patient's daughter, Vanesa confirms that her Mom text her last night telling her to look on her drawer when she got home. Patient's daughter became concerned after receiving the text and called patient. Patient told her that she had taken some pills. Daughter hung up the phone and immediately called 911. Patient's daughter would like mom to be considered for placement at [facility] in [place]. Daughter states that patient has constant "highs" and "lows" and that she is unable to supervise her throughout the day due to work. Diagnosis 298.9 (F29) unspecified psychosis 295.90 (F20.9) Schizophrenia per patient's daughter report Impression/Plan: Patient is recommended to continue IVC. Patient is experiencing active auditory hallucinations of her sister. Patient will be re- evaluated in the morning. Dr. Zamorano was consulted on the care and management of this patient; attending physician is in agreement with recommendations and disposition.
[2017-12-26] MEDS: DOXEPIN HCL 25 MG CAPSULE PO SCH (22:09)
[2017-12-27] MEDS: HEPARIN SOD (PORCINE) 5,000 UNIT/ML 1 ML SYRINGE SUBCUT SCH ×3 (05:47→23:00)
[2017-12-27 07:10] LABS: HEMATOCRIT 39.7 % (36.0-47.0); HEMOGLOBIN 13.8 g/dL (12.0-15.5); MEAN CORPUSCULAR HEMOGLOBIN 32.8 pg (27.0-33.4); MEAN CORPUSCULAR HGB CONC 34.8 g/dL (32.0-36.0); MEAN CORPUSCULAR VOLUME 94 fl (80-97); PLATELET COUNT 178 10^3/uL (150-450); RED CELL DISTRIBUTION WIDTH 13.2 % (11.5-14.0); WHITE BLOOD COUNT 5.2 10^3/uL (4.0-10.5)
[2017-12-27 07:38] LABS: ANION GAP 9 (5-19); BLOOD UREA NITROGEN 7 mg/dL (7-20); CALCIUM 9.1 mg/dL (8.4-10.2); CARBON DIOXIDE 26 mmol/L (22-30); CHLORIDE 108 mmol/L (98-107); GLUCOSE 121 mg/dL (75-110); POTASSIUM 3.3 mmol/L (3.6-5.0); SODIUM 142.8 mmol/L (137-145)
[2017-12-27] MEDS: FAMOTIDINE 20 MG TABLET PO SCH ×2 (09:18→23:00)
[2017-12-27] MEDS: BENZTROPINE MESYLATE 1 MG TABLET PO SCH (09:18)
[2017-12-27] MEDS: OLANZAPINE 5 MG TABLET PO SCH ×2 (09:18→23:00)
--- NOTE | 2017-12-27 17:49 | PDOC PROGRESS REPORT ---
Subjective Progress Note for:: 12/27/17 Subjective:: JAHAIRA HOROWITZ is a 57 year old female who came to the emergency department via EMS after her daughter reported that the patient called her to tell her she has taken 2 bottles of pills (unknown drugs & amounts). EMS was summoned and upon arrival found the patient unresponsive and apneic. She was endotracheally intubated and given ventilatory assistance with a bag device in route to the hospital. Upon arrival in the emergency room she was found to be obtunded with a Center Coma Scale score of 3. Patient was not given a sedative for intubation nor was she given any sedatives in the emergency room when she was placed on a ventilator. She was initially hypotensive in the emergency room with a blood pressure 80/60 that improved rapidly when she was given a bolus dose of normal saline. Family members/significant others provided the history that she had recently (11/23/17) had attempted suicide by taking 7 Seroquel tablets. At her home EMS found several empty medication bottles including doxepin 25 mg, clonazepam 0.5 mg, olanzapine 5 mg, lorazepam 0.5 mg and clindamycin 150 mg. Patient was admitted to the intensive care unit for symptomatic and supportive care. 12/25/17: Jahaira is doing better today and seems to be waking up to the point where she can follow commands to squeeze hands and open eyes. We will therefore stop her propofol sedation and extubate her. I reviewed her chest x-ray which was negative for acute disease or pneumothorax and showed the endotracheal tube in good position. Her laboratory work today was essentially unremarkable. We will plan to resume her medications for control of her psychiatric symptoms as soon as she is awake and alert. An involuntary committal will be sought such that we can assure that she receives appropriate psychiatric evaluation prior to any disposition. 12/26/17: Jahaira is markedly improved today she is awake and alert and conversant on exam. She admits that she had tried to kill herself and seems to be slightly remorseful about this although she tends to be fairly [id number] rather than the emotional in her statements. Her daily laboratory work is unremarkable and her sputum Gram stain and culture were returned as negative. She denies current pain or other discomfort and is content with her current diet and level of activity. She offers no acute complaints and denies nausea, abdominal pain, chest pain, dyspnea, headache and sore throat. She will continue observation in the ICU until after she has been evaluated by psychiatry. We will continue to provide symptomatic and supportive care until that time. 12/27/17: Jahaira is now on the medical floor with a sitter. She is doing well today and is feeling less depressed. She is being visited by her family at the time of my visit. She continues to be fairly matter of fact rather than emotional. She is medically stable at this time to be transferred to a psychiatric facility for further psychiatric care. She has been medically stable for more than 24 hours and does not require any further medical intervention at this point. We will await psychiatric placement for disposition. Reason For Visit: OVERDOSE,INTENTIONAL SUICIDE ATTEMPT Physical Exam Vital Signs: Temp Pulse Resp BP Pulse Ox 97.9 F 69 20 99/56 L 94 12/27/17 07:34 12/27/17 07:34 12/27/17 07:34 12/27/17 07:34 12/27/17 07:34 Intake & Output 12/25/17 12/26/17 12/27/17 23:59 23:59 23:59 Intake Total 4490 2907 993 Output Total 5075 5000 1600 Balance -585 -2093 -607 Weight 66.8 kg 65.3 kg 67.9 kg General appearance: PRESENT: no acute distress, cooperative Head exam: PRESENT: atraumatic, normocephalic Eye exam: ABSENT: conjunctival injection, periorbital swelling, scleral icterus Ear exam: PRESENT: normal external ear exam. ABSENT: drainage Mouth exam: PRESENT: neck supple, tongue midline Neck exam: ABSENT: thyromegaly, tracheal deviation Respiratory exam: PRESENT: clear to auscultation froilan, symmetrical, unlabored Cardiovascular exam: PRESENT: RRR. ABSENT: clicks, gallop, rubs Vascular exam: PRESENT: normal capillary refill. ABSENT: pallor GI/Abdominal exam: PRESENT: normal bowel sounds, soft Rectal exam: PRESENT: deferred Extremities exam: ABSENT: joint swelling, pedal edema Musculoskeletal exam: PRESENT: full ROM, normal inspection Neurological exam: PRESENT: alert, oriented to person, oriented to place, oriented to time, oriented to situation Psychiatric exam: PRESENT: appropriate affect, depressed Skin exam: ABSENT: jaundice, rash, urticaria Results Laboratory Results: 12/27/17 06:09 12/27/17 06:09 12/27/17 12/27/17 06:09 06:09 WBC 5.2 RBC 4.20 Hgb 13.8 Hct 39.7 MCV 94 MCH 32.8 MCHC 34.8 RDW 13.2 Plt Count 178 Sodium 142.8 Potassium 3.3 L Chloride 108 H Carbon Dioxide 26 Anion Gap 9 BUN 7 Creatinine 0.61 Est GFR ( Amer) > 60 Est GFR (Non-Af Amer) > 60 Glucose 121 H Calcium 9.1 12/24/17 15:00 Sputum Gram Stain - Final 12/24/17 15:00 Sputum Sputum Culture - Final Haemophilus Influenzae Normal Diane Impressions: Chest X-Ray 12/25/17 06:00 IMPRESSION: No pneumonia. Assessment & Plan - Diagnosis (1) Polysubstance overdose Qualifiers: Encounter type: initial encounter Injury intent: intentional self-harm Qualified Code(s): T50.902A - Poisoning by unspecified drugs, medicaments and biological substances, intentional self-harm, initial encounter Is this a current diagnosis for this admission?: Yes Plan: Jahaira will be provided with maintenance fluids, ventilatory support, symptomatic cares and supportive cares as well as close monitoring in the intensive care unit until she has recovered to her baseline function. 12/26/17: Jahaira has recovered to her baseline mental status. She will continue to receive care in the ICU until she has been evaluated by psychiatry and appropriate disposition can be arranged. She will be continued with supportive and symptomatic cares until her discharge. (2) Altered mental status Qualifiers: Altered mental status type: coma Coma depth: Adrian coma 3-8 Coma timing : in the field (EMT or ambulance) Qualified Code(s): R40.2431 - Adrian coma scale score 3-8, in the field [EMT or ambulance] Is this a current diagnosis for this admission?: Yes Plan: Patient is obtunded due to a poly-pharmacologic overdose. She will be given supportive care until her chemically induced delirium and encephalopathy have resolved. 12/25/17: Patient will be extubated today. When she is awake and alert will restart her usual medications and diet as appropriate. 12/26/17: Jahaira's mental status has returned to her baseline. She will be observed during the remainder of her hospitalization for any changes in her mental status but may recur. (3) Hypotension Qualifiers: Hypotension type: unspecified hypotension type Qualified Code(s): I95.9 - Hypotension, unspecified Is this a current diagnosis for this admission?: Yes Plan: Jahaira suffered from transient mild hypotension in the emergency room where her blood pressure was found to be 80/60 but responded rapidly to IV fluid rehydration. She has shown no signs of hypotension since that time. Daily laboratory evaluations (CBC, BMP and magnesium level) will be used to monitor any sequelae related to her transient hypotension. (4) Suicide attempt Is this a current diagnosis for this admission?: Yes Plan: By history the patient took at least 2 bottles of pills which is what she told her daughter when she called her and her intent was to commit suicide. This patient will require psychiatric evaluation and probable inpatient psychiatry after her medical stabilization. 12/25/17: An involuntary committal will be sought to prevent the patient from leaving the hospital without appropriate psychiatric evaluation. A psychiatric consult has been placed. 12/27/17: Patient is medically stable for transfer to a inpatient psychiatric facility. Await inpatient psychiatric facility bed for disposition. (5) Bipolar disorder Qualifiers: Psychotic features: with psychotic features Is this a current diagnosis for this admission?: Yes Plan: This patient has a history of bipolar disorder. Suicidal attempts for bipolar depressed patient's are unfortunately all too common. Psychiatric evaluation will be obtained as soon as the patient is medically stable and alert. 12/26/17: Jahaira his usual medications for control of her bipolar state have been restarted. These will be continued for the remainder of her hospital stay unless changed by the psychiatric electronics tester. - Time Time Spent with patient: 15-24 minutes Anticipated discharge: Other - Inpatient psychiatric facility Within: when bed available
[2017-12-27] MEDS: DOXEPIN HCL 25 MG CAPSULE PO SCH (23:02)
[2017-12-28] MEDS: HEPARIN SOD (PORCINE) 5,000 UNIT/ML 1 ML SYRINGE SUBCUT SCH (06:16)
[2017-12-28] MEDS: FAMOTIDINE 20 MG TABLET PO SCH (09:09)
[2017-12-28] MEDS: BENZTROPINE MESYLATE 1 MG TABLET PO SCH (09:09)
[2017-12-28] MEDS: OLANZAPINE 5 MG TABLET PO SCH (09:09)
[2017-12-28] MEDS: ACETAMINOPHEN 325 MG TABLET PO PRN (12:09)
[2017-12-28 12:51] VITALS: BP 121/76
--- NOTE | 2017-12-28 15:15 | PDOC TRANSFER SUMMARY ---
General Admission Date/PCP: 12/24/17 01:22 Transfer Date: 12/28/17 Accepting Facility: Other (Comments) Accepting Physician: Dr. Buckner Resuscitation Status: Full Code - Transfer Diagnosis (1) Suicide attempt Is this a current diagnosis for this admission?: Yes Diagnosis Summary: The patient attempted suicide by polypharmacy overdose. She has been accepted at an inpatient psychiatric facility and will be transferring today. She has been stable. (2) Polysubstance overdose Is this a current diagnosis for this admission?: Yes Diagnosis Summary: The patient has attempted polypharmacy overdose in the past. According to documentation prior to this attempt her most recent attempt was November 23, 2017. She took multiple doses of Seroquel, doxepin and clonazepam as well as her olanzapine and lorazepam. This admission was another polypharmacy overdose details unknown. Evidently the patient again took all of her medicines at once. She has been on an involuntary hold and is transferring to an inpatient psychiatric facility today. She has been stable back on her home medication regimen. (3) Bipolar disorder Is this a current diagnosis for this admission?: Yes Diagnosis Summary: The patient has chronic bipolar disorder. She will be transferring to an inpatient psychiatric facility. She is currently on her home medication regimen and is stable. (4) Altered mental status Is this a current diagnosis for this admission?: Yes Diagnosis Summary: Significantly improved since her admission. She appears to be back at her baseline. In fact she exhibited good medical insight regarding her recent thyroid surgery and thyroid disease. (5) Hypotension Is this a current diagnosis for this admission?: Yes Diagnosis Summary: Resolved (6) Acute respiratory failure Is this a current diagnosis for this admission?: Yes Diagnosis Summary: The patient suffered acute hypoxic respiratory failure secondary to her polypharmacy overdose. She was extubated fairly quickly as the medications were metabolized. She is back to room air with no respiratory distress. - Transfer Medications Home Medications: Benztropine Mesylate [Cogentin 1 mg Tablet] 1 mg PO DAILY 12/24/17 Doxepin HCl [Sinequan 25 mg Capsule] 25 mg PO QHS 12/24/17 Olanzapine [Zyprexa 5 mg Tablet] 5 mg PO Q12 12/24/17 Transfer Medications: Current Medications Acetaminophen (Tylenol 325 Mg Tablet) 650 mg PO Q4HP PRN PRN Reason: FEVER >101 Stop: 01/24/18 14:12 Last Admin: 12/28/17 12:09 Dose: 650 mg Albuterol/Ipratropium (Duoneb 3 Ml Ampul) 3 ml NEB RTQ4HP PRN PRN Reason: SHORTNESS OF BREATH Stop: 01/23/18 01:38 Benztropine Mesylate (Cogentin 1 Mg Tablet) 1 mg PO DAILY [facility] Stop: 01/24/18 14:29 Last Admin: 12/28/17 09:09 Dose: 1 mg Doxepin HCl (Sinequan 25 Mg Capsule) 25 mg PO QHS [facility] Stop: 01/24/18 21:59 Last Admin: 12/27/17 23:02 Dose: 25 mg Famotidine (Pepcid 20 Mg Tablet) 20 mg PO Q12 [facility] Stop: 01/25/18 09:59 Last Admin: 12/28/17 09:09 Dose: 20 mg Heparin Sodium (Porcine) (Heparin Inj 5,000 Units/Ml 1 Ml Syringe) 5,000 unit SUBCUT Q8 [facility] Stop: 01/23/18 05:59 Last Admin: 12/28/17 06:16 Dose: 5,000 unit Influenza Virus Vaccine Quadrival (Fluarix Adlt Quad Vac 0.5 Ml Syr) 0.5 ml IM .DISCHARGE PRN PRN Reason: THIS MED IS NOT "PRN" Stop: 01/23/18 04:34 Olanzapine (Zyprexa Inj/Pf 10 Mg Sdv) 10 mg IM Q6HP PRN PRN Reason: AGITATION/RESTLESSNESS/DELIRIU Stop: 01/24/18 13:51 Last Admin: 12/25/17 23:59 Dose: 10 mg Olanzapine (Zyprexa 5 Mg Tablet) 5 mg PO Q12 [facility] Stop: 01/24/18 21:59 Last Admin: 12/28/17 09:09 Dose: 5 mg Promethazine HCl (Phenergan Inj 25 Mg/1 Ml Vial) 25 mg IV Q4HP PRN PRN Reason: FOR NAUSEA/VOMITING Stop: 01/23/18 01:38 Sodium Chloride (Saline Flush 2.5 Ml Monoject Prefil Syrin) 2.5 ml IV Q8 [facility] Stop: 01/23/18 05:59 Last Admin: 12/28/17 06:16 Dose: 2.5 ml - Allergies Allergies/Adverse Reactions: No Known Allergies Allergy (Verified 12/14/16 12:09) - Diet/Activity Discharge Diet: As Tolerated Hospital Course Hospital Course: See above Physical Exam Vital Signs: Temp Pulse Resp BP Pulse Ox 98.1 F 98 20 121/76 98 12/28/17 07:27 12/28/17 07:27 12/28/17 07:27 12/28/17 07:27 12/28/17 07:27 Intake & Output 12/27/17 12/28/17 12/29/17 06:59 06:59 06:59 Intake Total 2227 1895 973 Output Total 3725 2650 800 Balance -8098 -915 173 Weight 67.9 kg 68.4 kg General appearance: PRESENT: no acute distress, cooperative, well-developed, well-nourished Head exam: PRESENT: atraumatic, normocephalic Eye exam: PRESENT: conjunctiva pink, EOMI. ABSENT: scleral icterus Ear exam: PRESENT: normal external ear exam Mouth exam: PRESENT: moist, neck supple Neck exam: ABSENT: carotid bruit, full ROM, JVD Respiratory exam: PRESENT: clear to auscultation froilan, symmetrical. ABSENT: rales, rhonchi, wheezes Cardiovascular exam: PRESENT: RRR, +S1, +S2. ABSENT: diastolic murmur, gallop, systolic murmur GI/Abdominal exam: PRESENT: normal bowel sounds, soft. ABSENT: distended, tenderness Extremities exam: ABSENT: pedal edema Musculoskeletal exam: PRESENT: normal inspection Neurological exam: PRESENT: alert, awake, oriented to person, oriented to place , oriented to situation Psychiatric exam: PRESENT: appropriate affect Skin exam: PRESENT: dry, intact, warm. ABSENT: cyanosis, rash Results Laboratory Results: 12/27/17 06:09 12/27/17 06:09 Impressions: Chest X-Ray 12/25/17 06:00 IMPRESSION: No pneumonia. Plan Time Spent: Greater than 30 Minutes
--- NOTE | 2017-12-28 16:34 | PSYCHOLOGICAL NOTE ---
Psych Note - Psych Note Date seen by psych provider: 12/29/17 Time seen by psych provider: 15:00 Psych Note: Reason for consult: hallucinations Clinician conducted check in with patient. Patient reports she went to the doctor because she didn't like the feeling of being "out of it." She continued to report that she wanted to get medication for assistance in sleeping; Raul however reports that he would not give it to her instead prescribed her doxepin. Patient confirmed that she intentionally overdosed with intent to kill herself stating that everything just got to be just "too much." Patient is alert and orientated to person, place, time and circumstance. Mood is slightly irritable affect is very flat. Patient confirms intentional overdose. Patient denies homicidal ideation. Patient presents with ongoing delusions that have been persistent for many years. Patient believes when she had a partial thyroidectomy there was a microphone put into her throat which enable the "voices" to hear everything around the patient and in the patient's head and to communicate with her. Conversational speech is very matter of fact. Thought content is focused on her delusions. Attention and concentration is fair. Insight, judgment, impulse control is poor. Diagnosis 298.9 (F29) unspecified psychosis Impression/Plan: Patient is recommended to continue IVC. Patient is experiencing active auditory hallucinations of her sister. Patient confirms she intentionally overdose with intent to kill herself. Patient will be re- evaluated. Dr. Zamorano was consulted on the care and management of this patient ; attending physician is in agreement with recommendations and disposition.
== END 2017-12-28 16:49 | DRG 917 ==
LOC: ER 22:34 → EH 12-24 01:22 → UNDOADMIN 12-24 01:22 → ICU 12-24 03:39 → EH 12-24 03:39 → 4S 12-26 21:00
PROVIDERS: ADMIT Internal Medicine; ATTEND Internal Medicine
PROC: 0BH17EZ Insertion of Endotracheal Airway into Trachea, Via Natural or Artificial Opening (ICD-10-PCS; principal; 2017-12-23)
PROC: 5A1945Z Respiratory Ventilation, 24-96 Consecutive Hours (ICD-10-PCS; 2017-12-23)
DX: T42.4X2A Poisoning by benzodiazepines, intentional self-harm, initial encounter (principal); J96.01 Acute respiratory failure with hypoxia; F20.0 Paranoid schizophrenia; T39.1X2A Poisoning by 4-Aminophenol derivatives, intentional self-harm, initial encounter; T39.092A Poisoning by salicylates, intentional self-harm, initial encounter; I95.2 Hypotension due to drugs; F20.9 Schizophrenia, unspecified; F31.9 Bipolar disorder, unspecified; R40.2431 Glasgow coma scale score 3-8, in the field [EMT or ambulance]; F17.210 Nicotine dependence, cigarettes, uncomplicated; F10.20 Alcohol dependence, uncomplicated; Y90.0 Blood alcohol level of less than 20 mg/100 ml; Y92.098 Other place in other non-institutional residence as the place of occurrence of the external cause
CPT/HCPCS: 36415; 51702; 71045; 80048; 80053; 80307; 81001; 82803; 82962; 83735; 84100; 85025; 85027; 85610; 85730; 87070; 87077; 87205; 93005; 93010; 94002; 94003; 96360; 99291; J1644; J2704; J3480; J3490; J7030; J7120; S0164